=== PATIENT | male | born 1960 | race Caucasian/White ===

== ENCOUNTER 2024-11-15 13:11 | Emergency (ER) | payer MEDICARE, SELFPAY ==
--- NOTE | 2024-11-15 13:15 | ED_ITS ---
HPI - Wound/Laceration General Chief Complaint: Wound/Laceration Stated Complaint: RT Hand 1st Finger Time Seen by Provider: 11/15/24 13:12 Source: patient Mode of arrival: ambulatory Limitations: no limitations History of Present Illness HPI narrative: Chris is a 64-year-old male patient presenting to the clinic today with complaints right index finger injury/laceration. He reports he was trying to put a razor blade back and it is case using a piece of wood when the wood slipped and he cut his finger. Has a 1.5 cm laceration to the distal right index finger. This happened prior to arrival. Bleeding is controlled. Tetanus was last received in 2016. Is able to flex and extend the distal finger. Patient takes Eliquis Related Data Allergies Allergy/AdvReac Type Severity Reaction Status Date / Time lisinopril Allergy Intermediate Cough Verified 11/15/24 14:00 cat dander Allergy Mild Sneezing Verified 11/15/24 14:00 cortes ebony Allergy Intermediate Sneezing Uncoded 11/15/24 14:00 Review of Systems Review of Systems: Pertinent positives per HPI. Patient denies any fever, chills, rash, headache, visual changes, dizziness, cough, runny nose, sore throat, shortness of breath, chest pain, palpitations, nausea, vomiting, diarrhea, constipation, abdominal pain, or any urinary issues. PMFSH Comments At the time of my signature, I reviewed and agree with the nursing past medical, surgical, social, and family history. There is no relevant family history pertinent to the patient complaint. Exam Narrative: General: Well-developed, well nourished, in no apparent distress Head: Normocephalic, atraumatic. Cardio: Regular rate and rhythm, s1 and s2 normal, no murmur appreciated. Resp: Clear to auscultation bilaterally, no rhonchi, rales, wheezing or rubs. Integumentary: [place], warm, and dry, 1.5 cm laceration over the dorsal PIP joint of the right index finger. Patient is able to flex and extend the finger. No obvious tendon as the laceration appears to be superficial. Bleeding controlled Course Course Emergency Course: Portions of this record may have been created with voice recognition software. Level of Care: Express Care Visit Vital Signs Vital signs: Vital Signs Temperature 36.4 C 11/15/24 13:21 Pulse Rate 59 L 11/15/24 13:21 Respiratory Rate 16 11/15/24 13:21 Blood Pressure 141/87 H 11/15/24 13:21 Pulse Oximetry 98 11/15/24 13:21 Oxygen Delivery Room Air 11/15/24 13:21 Temperature 36.4 C 11/15/24 13:21 Pulse Rate 59 L 11/15/24 13:21 Respiratory Rate 16 11/15/24 13:21 Blood Pressure 141/87 H 11/15/24 13:21 Pulse Oximetry 98 11/15/24 13:21 Oxygen Delivery Room Air 11/15/24 13:21 Vital signs reviewed Procedures Laceration Laceration 1: Date: 11/15/24 Site: hand (index finger) Side (If applicable): right Size (cm): 1.5 Description: linear Depth: simple, single layer Local Anesthetic: lidocaine 1% Amount of anesthesia used (mL): 0.5 Pre-repair: wound explored and irrigated ====== Skin Level ====== Skin layer closed with: nylon Size (cm): 5-0 Number of sutures: 5 Technique: simple, interrupted ====== Subcutaneous Layer ====== ====== Muscle Layer ====== ====== Tendon Layer ====== Dressing: Verbal consent obtained for laceration repair. Risk and benefits explained and patient voiced understanding. Area was cleansed with antiseptic wound wash and a 27 gauge needle was then used to instill (0.5) ml of 1% lidocaine without epi into the wound edges. Area was prepped and draped using sterile technique. A 5-0 suture on a p needle was used to place (5) interrupted sutures bringing the wound edges together- well approximated. Patient tolerated procedure well. Sterile pressure dressing and metal finger splint applied. MDM - Wound/Laceration MDM Narrative Medical decision making narrative: At the time of visit patient is resting comfortably on the exam table. Patient appears to be nontoxic. Procedures: Laceration repair was performed in the clinic today. Patient tolerated well. Five interrupted sutures were placed bringing wound edges well approximate. Plan: Patient has distal superficial finger laceration over the D IP, he is able to flex and extend the D IP joint. Bleeding is controlled. Laceration repair was performed placing 5 sutures. Supportive measures were discussed with the patient and they voiced understanding discharge instructions and agrees to treatment plan. Return precautions reviewed Differential Diagnosis Differential diagnosis: Likely laceration, abscess, abrasion, avulsion of skin and other (Tendon injury) Discharge Plan Discharge Clinical Impression: Finger laceration Qualifiers: Encounter type: initial encounter Finger: index finger Damage to nail status: without damage Foreign body presence: without foreign body Laterality: right Qualified Code(s): S61.210A - Laceration without foreign body of right index finger without damage to nail, initial encounter Patient Disposition: Home Condition: Stable Instructions: Antibiotic Form, Finger Laceration (ED) Additional Instructions: Tdap was given in the clinic today Leave bandage on for 24 hours then may remove and apply band aide covering as needed. Keep wound clean and dry Skin sutures out in 10 days. Wear metal finger splint to avoid ripping out the stitches Watch for signs and symptoms of infection-fever not controlled by Tylenol Motrin, redness, streaking, swelling, purulent discharge, or increase in pain. Follow up with your PCP for suture removal or return to the Express care. Patient Language: Occitan Follow-up/Referrals: Parent,CAN Arriaga [Primary Care Provider] - Time of Disposition: 13:56 Quality NIHSS Nursing Documentation ED NIHSS nursing documentation: reviewed/agree
[2024-11-15 13:21] VITALS: BP 141/87; PULSE 59; RESP 16; TEMP 36.4; O2SAT 98
[2024-11-15] MEDS: TETANUS,DIPHTHERIA,AC PERTUSSIS ADULT (0.5 ML) BOOSTRIX IM (13:34)
[2024-11-15] MEDS: LIDOCAINE 1% LOCAL INJ 2 ML AMPUL 4 ML INFILTRATE (13:34)
--- OUTSIDE RECORDS SUMMARY | 2024-11-15 13:43 | XMS_ITS | Clinical Summary ---
Author Organization [facility] Address [address] [place] [address] Care Team Providers Care Theology Professor Name Role Phone Leonard Connors MD Unavailable [phone] Steven Plunkett MD Unavailable [phone] [facility] Primary Care Provider [phone] Allergies Active Allergy Reactions Criticality Noted Date Comments Amiodarone Vision changes Medium 07/21/2018 Cat Dander Rhinitis Low 12/14/2022 Lisinopril Hives High 11/16/2019 Ragweed Rhinitis Low 06/16/2020 Medications omeprazole (PriLOSEC) 40 mg capsule take 1 capsule by oral route every day before a meal 0 0 6 Active aspirin 81 mg enteric coated tablet Take 1 tablet (81 mg total) by mouth every morning Active acetaminophen (TYLENOL) 325 mg tablet 2 po at hs , one in AM 250 tablet 1 1 Active magnesium oxide (MAG-OX) 400 mg (241.3 mg elemental magnesium) tablet TAKE 1 TABLET(400 MG) BY MOUTH DAILY 30 tablet 11 2 Active clobetasoL (TEMOVATE) 0.05 % ointment 3 Active psyllium husk (KONSYL) 6 gram packet Take 1 packet (6 g total) by mouth 3 (three) times a day for 14 days 42 packet 3 Active triamcinolone (KENALOG) 0.5 % cream APPLY A THIN LAYER TO THE AFFECTED AREA(S) BY TOPICAL ROUTE 2 TIMES PER DAY up to 2 weeks at a time Active hydrocortisone 2.5 % cream 3 Active Pramosone cream Apply 1 Application topically as needed for itching 3 Active Rhopressa 0.02 % drops INSTILL 1 DROP INTO EACH EYE AT NIGHT AT BEDTIME Active diclofenac sodium (Voltaren Arthritis Pain) 1 % gel APPLY 2 GRAMS TO THE AFFECTED AREA(S) BY TOPICAL ROUTE 4 TIMES PER DAY 4 Active dorzolamide (TRUSOPT) 2 % ophthalmic solutionIndica tions:Angle-cl osure glaucoma, severe stage INSTILL 1 DROPS INTO EACH EYE TWICE DAILY 30 mL 3 4 Active losartan (COZAAR) 50 mg tablet Take 1 tablet (50 mg total) by mouth 2 (two) times a day 180 tablet 3 4 03/20/20 25 Active potassium chloride ER 20 mEq CR tablet TAKE 2 TABLETS BY MOUTH TWICE DAILY 360 tablet 2 5 Active metoprolol XL (TOPROL-XL) 25 mg extended release tablet Take 1 tablet (25 mg total) by mouth daily 90 tablet 1 5 Active apixaban (Eliquis) 5 mg tablet Take 1 tablet (5 mg total) by mouth 2 (two) times a day 180 tablet 3 5 07/20/19 26 Active sotaloL (BETAPACE) 120 mg tablet TAKE 1 AND 1/2 TABLETS(180 MG) BY MOUTH TWICE DAILY 270 tablet 5 Active brimonidine (ALPHAGAN) 0.15 % ophthalmic solution INSTILL 1 DROP INTO EACH EYE THREE TIMES DAILY 45 mL 5 Active mexiletine (MEXITIL) 150 mg capsule Take 1 capsule (150 mg total) by mouth 3 (three) times a day 270 capsule 5 Active amLODIPine (NORVASC) 5 mg tablet Take 1 tablet (5 mg total) by mouth daily 90 tablet 3 5 Active amLODIPine (NORVASC) 5 mg tablet TAKE 1 TABLET(5 MG) BY MOUTH DAILY 90 tablet 3 4 10/27/19 25 Discontin ued(Reord er) Active Problems Problem Noted Date Diagnosed Date ICD (implantable cardioverter-defibrillator) in place 09/19/2024 High risk medication use 09/19/2024 Left carpal tunnel syndrome 03/12/2024 Right carpal tunnel syndrome 03/12/2024 Left wrist pain 03/12/2024 Other specified arthritis, right wrist Scapholunate advanced collapse of right wrist CYNTHIA on CPAP 03/09/2023 Legal blindness 10/12/2022 Assessment & Plan (10/12/2022 10:13 AM CDT): Based on VF Pseudophakia of both eyes 10/12/2022 Assessment & Plan (02/24/2023 4:11 PM CDT): Release updated glasses Rx Circadian rhythm sleep disorder, delayed sleep p hase type 03/01/2022 Morbid (severe) obesity due to excess calories 0 03/01/2022 Squamous blepharitis of both upper and lower eyelid of left eye 01/05/2022 Assessment & Plan (06/16/2023 3:28 PM ROLL TRUCKER): Rx doxy 100 mg BID Pt reports this helped significantly in the past Rec refresh/systane tears prn Assessment & Plan (01/05/2022 3:02 PM CDT): Pt ed, no foreign body (FB), mod-sev bleph left eye (OS), mild right eye (OD). Pt ed to cont Glc drops as Rx'd per Dr. Cooper. Trichiasis of left upper eyelid 01/05/2022 Lesion of left lower eyelid 12/14/2021 Assessment & Plan (12/14/2021 1:08 AM CDT): Suspect benign seborrheic keratosis vs multiple syringoma. Risks, benefits and alternatives were discussed. Risks included but were not limited to pain, bleeding, scarring, recurrence, and possible need for additional procedures. Following this discussion, the patient wishes to proceed with left lower lid (LLL) lesion excision and biopsy. This was performed today without any complications. They will follow-up as needed. We will contact him with the biopsy results. Restless sleeper 06/16/2020 Chronic arthritis 06/16/2020 Chewing tobacco use 03/23/2020 Assessment & Plan (03/25/2020 9:52 AM CDT): Pt reports he chews tobacco, denies smoking cigarettes -Cont Nicotine patch Assessment & Plan (03/24/2020 9:21 AM CDT): Pt reports he chews tobacco, denies smoking cigarettes -Cont Nicotine patch VT (ventricular tachycardia) 03/20/2020 Assessment & Plan (07/17/2020 11:24 AM ROLL TRUCKER): S/p VT ablation. Tolerated well. No VT overnight on telemetry. Cleared for discharge by EP. - Held home Eliquis immediately post-procedure, resume today - Continue home Sotalol, Mexiletine - EP Cardiology follow-up Assessment & Plan (07/16/2020 5:29 PM ROLL TRUCKER): S/p VT ablation. - Monitor overnight - Check CBC and watch for e/o bleeding - Hold home Eliquis tonight; can likely resume tomorrow on discharge - Continue home Sotalol, Mexiletine - EP Cardiology following Assessment & Plan (03/26/2020 11:19 AM CDT): History of VT RFA 11/29/2018 and VT storm s/p RFA 10/2019 Home meds sotalol 120mg BID and metoprolol 12.5mg BID Developed visual disturbances/blindness with amiodarone in the past Presented to OSH 03/18 with appropriate ICD shocks for VT Most recent C 11/2018 with no significant CAD ECHO 03/20 with Grossly normal LV/RV size and systolic function (estimated LVEF 60%). Diastolic dysfunction Sotalol increased to 160mg BID this admission Had recurrent VT Thursday 03/22 Increased to 180mg 03/24 Started on Lidocaine gtt 1mg/min 03/22 PM due to recurrent VT with AICD shock Transitioned to Mexiletine 03/24, lidocaine off since 03/24 MPI to re-assess scar - no significant new findings Serial EKGs 2 hours after each Sotalol remain stable Will monitor until this afternoon- if no recurrent ventricular arrhythmias, discharge later today Continuous uninterrupted telemetry monitoring until discharge Keep K >4.0 & Mg > 2.0, replete as indicated Assessment & Plan (03/25/2020 9:59 AM CDT): Admitted with multiple AICD shocks for VT; interrogation with 5 episodes; 2 shocks, 2 successful ATP; noted K 3.5 and Mg 1.8 at time -History of VT RFA 11/29/2018 and VT storm s/p RFA 10/2019 -Developed visual disturbances/blindness with Amiodarone in the past -Most recent [facility] 11/2018 with no significant CAD -ECHO 03/20 with grossly normal LV/RV size and systolic function (estimated LVEF 60%), diastolic dysfunction -Sotalol increased to 160mg BID this admission, increased to 180mg 03/24 -Started on Lidocaine gtt 1mg/min 1010 PM due to recurrent VT with AICD shock -Start Mexiletine 03/24, lidocaine off 03/24 afternoon -MPI today to re-assess scar -Serial EKGs 2 hours after each Sotalol dose; QTc today 430, paced rhythm -Continuous uninterrupted telemetry monitoring -Keep K >4.0 & Mg > 2.0, replete as indicated Assessment & Plan (03/24/2020 1:38 PM CDT): Admitted with multiple AICD shocks for VT; interrogation with 5 episodes; 2 shocks, 2 successful ATP; noted K 3.5 and Mg 1.8 at time -History of VT RFA 11/29/2018 and VT storm s/p RFA 10/2019 -Developed visual disturbances/blindness with Amiodarone in the past -Most recent [facility] 11/2018 with no significant CAD -ECHO 03/20 with grossly normal LV/RV size and systolic function (estimated LVEF 60%), diastolic dysfunction -Sotalol increased to 160mg BID this admission, will increase to 180mg BID today -Started on Lidocaine gtt 1mg/min 1010 PM due to recurrent VT with AICD shock -Start Mexiletine this morning, DC lidocaine gtt this afternoon -No plans for repeat ablation at this time -Serial EKGs 2 hours after each Sotalol dose; QTc today 430, paced rhythm -Continuous uninterrupted telemetry monitoring -Keep K >4.0 & Mg > 2.0, replete as indicated Assessment & Plan (03/23/2020 10:32 AM CDT): Admitted with multiple AICD shocks for VT; interrogation with 5 episodes; 2 shocks, 2 successful ATP; noted K 3.5 and Mg 1.8 at time -History of VT RFA 11/29/2018 and VT storm s/p RFA 10/2019 -Developed visual disturbances/blindness with Amiodarone in the past -Sotalol increased this admission -Started on Lidocaine gtt 1mg/min last night due to recurrent VT, continue, Lidocaine level 1.2 today -EKG today A paced with QTc 445ms -Continue Sotalol to 160mg BID -Serial EKGs 2 hours after each Sotalol dose -Continuous uninterrupted telemetry monitoring -Most recent [facility] 11/2018 with no significant CAD -ECHO 03/20 with grossly normal LV/RV size and systolic function (estimated LVEF 60%), diastolic dysfunction -No plans for repeat ablation -Monitor lytes Assessment & Plan (03/22/2020 12:44 PM CDT): Admitted with multiple AICD shocks for VT; interrogation with 5 episodes; 2 shocks, 2 successful ATP; noted K 3.5 and Mg 1.8 at time -History of VT RFA 11/29/2018 and VT storm s/p RFA 10/2019 -Developed visual disturbances/blindness with amiodarone in the past -Increased sotalol to 160mg BID; serial EKGs and continuous telemetry; EKG today paced with QTc 464 -Most recent [facility] 11/2018 with no significant CAD -ECHO 03/20 with Grossly normal LV/RV size and systolic function (estimated LVEF 60%), Diastolic dysfunction -No plans for repeat ablation -Monitor lytes Assessment & Plan (03/21/2020 9:58 AM CDT): History of VT RFA 11/29/2018 and VT storm s/p RFA 10/2019 Home meds sotalol 120mg BID and metoprolol 12.5mg BID Developed visual disturbances/blindness with amiodarone in the past Presented to OSH 03/18 with appropriate ICD shocks for VT 21:17 VT events initially terminated with ATP, then recurrent (21:23) with ATP fail, terminated with shock x 1 Followed by possible AFRVR (21:24) with PVCs ATPx2 with no clear resolution Recurrent VT (21:29) event terminated with shock x 1 VT 21:33 - 10-beat NSVT event terminated without therapies Noted to be Hypokalemic with K 3.5 and hypomagnesemic 1.8 Lytes repleted with no recurrence Keep K > 4, Mg > 2 Increased sotalol to 160mg BID Follow ECG BID Will monitor over weekend- if no recurrence likely discharge Tuesday Most recent [facility] 11/2018 with no significant CAD ECHO 03/20 with Grossly normal LV/RV size and systolic function (estimated LVEF 60%). Diastolic dysfunction Monitor on continuous telemetry No plans for repeat ablation Assessment & Plan (03/20/2020 11:01 AM CDT): History of VT RFA 11/29/2018 and VT storm s/p RFA 10/2019 Currently on sotalol and metoprolol Developed visual disturbances/blindness with amiodarone in the past Presented to OSH 03/18 with appropriate ICD shocks for VT 21:17 VT events initially terminated with ATP, then recurrent (21:23) with ATP fail, terminated with shock x 1 Followed by possible AFRVR (21:24) with PVCs ATPx2 with no clear resolution Recurrent VT (21:29) event terminated with shock x 1 VT 21:33 - 10-beat NSVT event terminated without therapies Noted to be Hypokalemic with K 3.5 and hypomagnesemic 1.8 Lytes repleted with no recurrence Keep K > 4, Mg > 2 Continue sotalol and metoprolol for now Most recent [facility] 11/2018 with no significant CAD Echo 10/2019 with low normal LV function- repeat echo today Monitor on continuous telemetry Daily ECG History of mitral valve repair 03/20/2020 Assessment & Plan (03/23/2020 10:25 AM CDT): Severe mitral regurgitation with flail leaflet status post mitral valve repair plus MAZE by Dr. Veliz 02/26/2016 Assessment & Plan (03/22/2020 9:06 AM CDT): Severe mitral regurgitation with flail leaflet status post mitral valve repair plus MAZE by Dr. Veliz 02/26/2016 Assessment & Plan (03/20/2020 10:55 AM CDT): Severe mitral regurgitation with flail leaflet status post mitral valve repair plus MAZE by Dr. Veliz 02/26/2016 Dizziness 02/13/2020 Tinnitus 02/13/2020 Asymmetric SNHL (sensorineural hearing loss) 07/2019 Aortic root dilatation 01/17/2019 Ventricular tachycardia 11/21/2018 Assessment & Plan (11/01/2019 1:56 AM CDT): Patient with recurrent VT episodes and multiple ICD shocks starting late 10/29 at home. Brought to [facility] ED and given IV K/Mg and started on Lidocaine infusion, transferred to [facility] CCU. - [employer] rep called; device interrogated - EP consult placed - appreciate recs - Anticipate repeat ablation for Tuesday - Continue Lidocaine gtt - Starting Metoprolol 25mg q6h - TTE ordered. Assessment & Plan (12/01/2018 8:56 AM CDT): Patient with history of multiple supraventricular tachycardias including afib/aflutter with recent admission 11/20 for Tikosyn load, now presenting with HR 202 at home and possible wide complex physiology. As no true EKG, unclear if SVT with aberancy vs Ventricular origin. Suspect SVT over ventricular origin as patient had normal LHC last week. -Follows with Dr. Plunkett -Telemetry w/o VT (shows bigeminy) -Continue Tikosyn -Monitor electrolytes - S/P VT Ablation 11/29, now S/P ICD placement 11/30 Assessment & Plan (11/23/2018 8:56 AM CDT): History of surgical MAZE/MV in 2016 and ablation Rhythm strip from OSH showing VT vs: tachyarrhythmia with aberrant conduction - continue dofetilide 125mcg bid with 12 lead EKG after each dose Positive stress test : plan for LHC on Tuesday ( currently can not do today related to patient on apixaban) - strict telemetry -hold apixaban for cardiac catheterization - continue coreg 3.125 mg bid Assessment & Plan (11/22/2018 8:13 AM CDT): History of surgical MAZE/MV in 2016 and ablation Rhythm strip from OSH showing VT vs: tachyarrhythmia with aberrant conduction - continue dofetilide 125mcg bid with 12 lead EKG to follow ATc - NPO for nuclear stress test tomorrow to evaluate for ischemia - strict telemetry - continue apixaban - continue coreg Assessment & Plan (11/21/2018 9:42 AM CDT): History of surgical MAZE/MV in 2016 and ablation Rhythm strip from OSH showing VT vs: tachyarrhythmia with aberrant conduction - continue dofetilide 125mcg bid with 12 lead EKG to follow ATc - NPO after midnight for nuclear stress test tomorrow to evaluate for ischemia - strict telemetry - continue apixaban - continue coreg Bilateral posterior capsular opacification 10/27 Assessment & Plan (01/23/2019 4:19 PM CDT): POW#1 sp yag cap left eye (OS) -great outcome; vision improved subjectively and on eye chart -stop ketorolac Status post (s/p) yag cap right eye (OD) 12/2018 Assessment & Plan (12/29/2018 2:22 PM CDT): POW#1 status post (s/p) yag cap right eye (OD) -great outcome -stop ketorolac -pt now more symptomatic of PCO left eye (OS) Schedule left eye (OS) with RW next available Assessment & Plan (10/27/2018 3:18 PM CDT): right eye (OD)>OS -visually significant; pt symptomatic for blur and decreased vision -also assessed by RW today -RTC for yag cap; right eye (OD) first already assessed by RW Blepharitis of upper eyelids of both eyes 2017 Assessment & Plan (12/20/2023 11:46 AM CDT): Optase wipes daily PFATs QID+ Assessment & Plan (03/10/2018 4:30 PM CDT): Cont ocusoft lid wipes and daily lid hygiene; defer topical steroid due to advanced glaucoma -okay to cont to Doxy 100mg every day (QD) as needed; consider 50mg instead but tolerates 100mg well and feels helpful for symptoms Assessment & Plan (02/26/2018 8:31 PM CDT): Follows with optho. -daily lid hygiene and warm compresses Assessment & Plan (01/25/2018 11:57 AM CDT): Chronic; previously treated with oral doxy; start Ocusoft lid wipes daily X 2-3 weeks; start daily lid hygiene and warm compresses. Idiopathic peripheral neuropathy 06/09/2017 Abdominal aortic aneurysm (AAA) 06/01/2017 Conjunctival hemorrhage 03/14/2017 Assessment & Plan (01/02/2024 4:59 PM CDT): S/sx resolved stopping Rhopress, cont off this Hypertropia of right eye 03/14/2017 Assessment & Plan (07/05/2023 10:47 AM ROLL TRUCKER): Update Rx Assessment & Plan (07/18/2018 3:17 PM ROLL TRUCKER): Noted on original exam with Dr Gabriel prior CE; tried fresnel with no improvement -may be decompensated after cataract extraction (CE) as became symptomatic after sx -does well with 2BD right eye (OD); cont with hb rx Assessment & Plan (03/10/2018 4:29 PM CDT): Stable with prism in RX; follow Assessment & Plan (12/09/2017 4:25 PM CDT): Stable with prism in rx; no diplopia; follow Adult BMI 36.0-36.9 kg/sq m 03/02/2017 Assessment & Plan (03/20/2020 10:53 AM CDT): Weight stable Knee pain 11/19/2016 Angle-closure glaucoma, secondary, bilateral, se marcial stage 06/30/2016 Assessment & Plan (10/26/2024 3:36 PM CDT): IOPs low/at goal CPM Assessment & Plan (02/24/2024 12:55 PM CDT): IOPs excellent, at goal both eyes (OU) Cont on 4 classes both eyes (OU) Rocklatan qhs Dorz BID Brim BID Assessment & Plan (01/02/2024 4:59 PM CDT): CPM Assessment & Plan (11/28/2023 3:56 PM CDT): Continue current drop regimen, but add Rhopressa at bedtime (qhs) OU Assessment & Plan (07/05/2023 10:48 AM ROLL TRUCKER): CPM Assessment & Plan (06/16/2023 3:29 PM ROLL TRUCKER): IOPs low, adequate for visual field (VF) (stable compared to 09/2022) Cont brim TID and Trusopt BID OU Assessment & Plan (02/24/2023 4:11 PM CDT): Last visual field (VF), 10-2 stable, CPM Assessment & Plan (10/12/2022 10:15 AM CDT): Cagle visual field (HVF) 10-2 stable Severe disease, h/o angle closure glaucoma (ACG) Cont Brim TID + Dorzolamide BID OU Assessment & Plan (01/05/2022 3:03 PM CDT): cont brim TID both eyes (OU) and Dorz BID both eyes (OU) Assessment & Plan (11/04/2019 10:25 AM CDT): -Cont home eye drops Assessment & Plan (11/02/2019 3:34 PM CDT): -Cont home eye drops Assessment & Plan (10/31/2019 4:42 PM CDT): Continue home eye drop regimen as precribed Assessment & Plan (01/23/2019 4:20 PM CDT): intraocular pressure (IOP) at goal on 2 classes -Cagle visual field (HVF) 10-2 constricted right eye (OD)>OS but stable to previous -CPM -RTC 3 months intraocular pressure (IOP) Assessment & Plan (11/27/2018 5:35 AM CDT): -Severely decreased R visual acuity -Continue home eye drops Assessment & Plan (07/18/2018 3:13 PM ROLL TRUCKER): intraocular pressure (IOP) at goal on 2 classes -status post (s/p) phaco/IOL I-stent with Dr Vincent -OCT RNFL thin both eyes (OU) but stable to 06/2016 -cont brim TID both eyes (OU) and Dorz BID both eyes (OU) -RTC 6 months Cagle visual field (HVF) 10-2 Assessment & Plan (03/10/2018 4:29 PM CDT): Status post (s/p) phaco/IOL and istent both eyes (OU) -intraocular pressure (IOP) at goal today on 2 classes -Cagle visual field (HVF) 10-2 today improved from last; stable to 06/2016 -Cont brim TID and dorz BID both eyes (OU) -RTC 5-6 months intraocular pressure (IOP) and DFE Assessment & Plan (02/26/2018 8:35 PM CDT): Last optho note from 01/25 reported IOP at goal -c/w Brimonidine TID -c/w Azopt BID Assessment & Plan (01/25/2018 11:58 AM CDT): Status post (s/p) phaco/ecp/istent both eyes (OU); deep and quiet today. intraocular pressure (IOP) at goal on Brimonidine TID and Azopt BID both eyes (OU); CPM; RTC as scheduled 02/2018 with 10-2 Assessment & Plan (12/09/2017 4:27 PM CDT): Severe stage both eyes (OU); right eye (OD)>OS Cagle visual field (HVF) 10-2 shows progression both eyes (OU). May be residual change form prior angle closure/pressure spike. intraocular pressure (IOP) at goal today on 2 classes but not using correctly; pt ed Brim TID both eyes (OU) and Dorz BID both eyes (OU). Recommend artificial tears 5 minutes prior to dorz to reduce burning. RTC 3 months with repeat 10-2 to assess for true progression Disorder of optic nerve 06/16/2016 Retinal embolus 05/17/2016 Gastroesophageal reflux disease 05/17/2016 Assessment & Plan (11/04/2019 10:25 AM CDT): -cont PPI Assessment & Plan (11/02/2019 3:34 PM CDT): -cont PPI Assessment & Plan (10/31/2019 4:42 PM CDT): Continue home pantoprazole Obstructive sleep apnea syndrome, severe 016 Assessment & Plan (03/07/2024 11:56 AM CDT): Compliance data reviewed and discussed CYNTHIA - good compliance and response to therapy. Benefiting from therapy. Continue PAP therapy. Compliance data reviewed and discussed. Equipment maintenance discussed. RTC in one year or as needed. New Order for yearly supplies entered. Provider Plus Assessment & Plan (07/17/2020 11:24 AM ROLL TRUCKER): - CPAP Assessment & Plan (07/16/2020 5:29 PM ROLL TRUCKER): - CPAP Assessment & Plan (03/25/2020 9:54 AM CDT): Continue home CPAP Assessment & Plan (03/24/2020 9:20 AM CDT): Continue home CPAP Assessment & Plan (03/23/2020 10:25 AM CDT): Continue home CPAP Assessment & Plan (03/22/2020 9:06 AM CDT): Continue home CPAP Assessment & Plan (03/21/2020 9:59 AM CDT): Continue home CPAP Assessment & Plan (03/20/2020 10:54 AM CDT): Continue home CPAP Assessment & Plan (11/03/2019 11:57 AM CDT): -Cont CPAP Assessment & Plan (11/02/2019 3:35 PM CDT): -Cont CPAP Assessment & Plan (10/31/2019 4:41 PM CDT): CPAP at night Assessment & Plan (11/27/2018 5:34 AM CDT): -Continue CPAP 14mmHg Assessment & Plan (11/23/2018 8:58 AM CDT): - continue home CPAP nightly Assessment & Plan (11/22/2018 8:12 AM CDT): - continue home CPAP nightly Assessment & Plan (11/21/2018 9:38 AM CDT): - continue home CPAP nightly Coronary arteriosclerosis in [place] artery 01/13 Essential hypertension 05/06/2015 Assessment & Plan (07/17/2020 11:25 AM ROLL TRUCKER): - Continue home Norvasc, Losartan, Metoprolol, Sotalol Assessment & Plan (07/16/2020 5:30 PM ROLL TRUCKER): - Continue home Norvasc, Losartan, Metoprolol, Sotalol Assessment & Plan (03/26/2020 11:21 AM CDT): Blood pressure controlled -Continue home Amlodipine, Losartan, and Metoprolol Assessment & Plan (03/25/2020 9:52 AM CDT): Blood pressure controlled -Continue home Amlodipine, Losartan, and Metoprolol Assessment & Plan (03/24/2020 9:20 AM CDT): Blood pressure controlled -Continue home Amlodipine, Losartan, and Metoprolol Assessment & Plan (03/23/2020 10:25 AM CDT): Blood pressure controlled -Continue home Smlodipine, Losartan, and Metoprolol Assessment & Plan (03/22/2020 9:06 AM CDT): Blood pressure controlled -Continue home amlodipine, losartan, and metoprolol Assessment & Plan (03/21/2020 9:59 AM CDT): Blood pressure controlled Continue home amlodipine, losartan, and metoprolol Follow Assessment & Plan (03/20/2020 11:04 AM CDT): Blood pressure controlled Continue home amlodipine, losartan, and metoprolol Follow Assessment & Plan (11/04/2019 10:25 AM CDT): At goal -cont amlodipine, metoprolol (prior coreg), losartan Assessment & Plan (11/02/2019 3:34 PM CDT): -cont amlodipine, metoprolol (prior coreg), losartan Assessment & Plan (10/31/2019 4:41 PM CDT): Stopped home Coreg in favor of Metoprolol for q6h titration. - Continue prior home regimen of amlodipine and losartan. Assessment & Plan (11/27/2018 5:34 AM CDT): -Continue Coreg, Lisinopril Assessment & Plan (11/23/2018 9:03 AM CDT): reviewed blood pressures 124/93,130/90 ( might consider increasing carvedilol to 6. 25 mg bid ) - continue coreg 3.125 mg bid and lisinopril 20 mg daily Assessment & Plan (11/22/2018 8:12 AM CDT): Currently at goal - continue coreg, lisinopril and monitoring Assessment & Plan (11/21/2018 9:43 AM CDT): Currently at goal - continue coreg, lisinopril and monitoring Assessment & Plan (07/25/2018 10:39 AM ROLL TRUCKER): - currently with systolics in the 80s, asymptomatic - plan to restart his beta shelly tonight per cards recs - still holding lisinopril and spironolactone, will defer restarting until patient can be reevaluated with PCP or cardiology Assessment & Plan (07/24/2018 6:41 PM ROLL TRUCKER): - currently normotensive - plan to restart his beta shelly tonight per cards recs, holding lisinopril and spironolactone. Assessment & Plan (02/26/2018 8:36 PM CDT): Well controlled on current medications. -c/w lisinopril Aneurysm of thoracic aorta 05/06/2015 Atrial fibrillation and flutter 05/06/2015 Assessment & Plan (03/26/2020 11:21 AM CDT): S/P MAZE 2016 with recurrent atrial arrhythmias. AF/AFL RFA 07/24/18 Anticoagulated with Eliquis Assessment & Plan (03/25/2020 9:51 AM CDT): S/P MV repair and MAZE 2015 with recurrent atrial arrhythmias -AF/AFL RFA 07/24/18 -Home Eliquis held on admission for possible invasive procedures -Continue Heparin gtt for anticoagulation, will plan to resume NOAC prior to discharge Assessment & Plan (03/24/2020 9:21 AM CDT): S/P MV repair and MAZE 2016 with recurrent atrial arrhythmias -AF/AFL RFA 07/24/18 -Home Eliquis held on admission for possible invasive procedures -Continue Heparin gtt for anticoagulation, will plan to resume NOAC prior to discharge Assessment & Plan (03/23/2020 10:32 AM CDT): S/P MV repair and MAZE 2015 with recurrent atrial arrhythmias -AF/AFL RFA 07/24/18 -Home Eliquis held on admission for possible invasive procedures -Continue Heparin gtt for anticoagulation, will plan to resume NOAC prior to discharge Assessment & Plan (03/22/2020 9:07 AM CDT): S/P MV repair and MAZE 2015 with recurrent atrial arrhythmias -AF/AFL RFA 07/24/18 -Anticoagulated with Eliquis, held on admission for possible invasive procedures, cont hpn gtt Assessment & Plan (03/21/2020 9:58 AM CDT): S/P MAZE 2015 with recurrent atrial arrhythmias. AF/AFL RFA 07/24/18 Anticoagulated with Eliquis- held on admission for possible invasive procedures Heparin drip until Eliquis resumed Will resume tonight- patient not interested in repeat ablation at this time No need for other invasive testing Assessment & Plan (03/20/2020 11:03 AM CDT): S/P MAZE 2015 with recurrent atrial arrhythmias. AF/AFL RFA 07/24/18 Anticoagulated with Eliquis- held on admission for possible invasive procedures Heparin drip until Eliquis resumed Assessment & Plan (11/04/2019 10:25 AM CDT): A-V pacing on tele. - stopped dofetilide - now on sotalol load (first dose 11/01 PM); c/w sotalol 120 mg BID - EKG 2 hours post dose -c/w apixaban 5mg bid Assessment & Plan (11/02/2019 1:52 AM CDT): A-V pacing on tele. -Eliquis currently held prior to VT ablation -restart pending EP recs Assessment & Plan (11/01/2019 1:56 AM CDT): On Eliquis at home. Eliquis was HELD upon admission (last dose taken evening of 10/29 at home) Assessment & Plan (12/01/2018 8:53 AM CDT): Status post bilateral MAZE 02/2016 and radioablation 07/2018 -Currently in sinus rhythm -CHADS-VASC = 1 - Per EP, restarting Apixaban on 12/02. 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 - restart beta shelly - PPI x1 mo - telemetry Assessment & Plan (07/24/2018 6:42 PM ROLL TRUCKER): - s/p ablation today with EP: Plan to resume eliquis and dofetilide overnight, with plan to continue eliquis for at least 6-12 months, and dofetilide for the next 1-2 months. - restart beta shelly - PPI x1 mo - telemetry Assessment & Plan (03/02/2018 11:53 AM CDT): Pt was diagnosed with A-fib 3 yrs ago. Recent CV in March, with return to sinus rhythm. He was previously rhythm controlled, but developed severe vision problems while on amiodarone. Currently rate controlled with metop. Pt was wearing holter at admission and interrogation returned supraventricular tachycardia, 5 beats of V- tch, and 4 beats of V-tach. -s/p maze in 2015 -[id number] score of 2 points -continue metoprolol 25 BID -continue asprin -continue Apixaban 5 mg BID -EP c/s. Appreciate recs: Apixaban, dofetilide, TTE - dofetilide 500 mcg BID - BID EKG after dofetilide dosing - TTE: aortic root dilation to 4.1cm. Mild MR. nml EF. No new structural changes - CTM x6 doses dofetilide, last AM 03/02 -ctm on tele - Regular diet - discharge today Congenital anomaly of cerebrovascular system Overview (09/23/2017): Description: R. parietal, 12/2014 Resolved Problems Problem Noted Date Diagnosed Date Resolved Date Ventricular tachycardia 11/26/2018 01/0 09/2020 Overview (11/28/2018): Added automatically from request for surgery [id number] Assessment & Plan (11/04/2019 10:26 AM CDT): VT storm and transferred to [facility] (total 28 ICD shocks). Arhythmias controlled with normalization of electrolytes and lidocaine. Allergy/intolerant to amio. - s/p VT RFA on 11/01 - now on sotalol load (first dose 11/01 PM); c/w sotalol 120 mg BID - EKG 2 hours post dose -c/w apixaban 5mg bid Assessment & Plan (11/02/2019 3:36 PM CDT): VT storm and transferred to [facility] (total 28 ICD shocks). Arhythmias controlled with normalization of electrolytes and lidocaine. Allergy/intolerant to amio. - s/p VT RFA this AM -Lidocaine held at midnight last night prior to ablation -cont metoprolol (discuss EP possible propranolol) -Strict telemetry -K>=4, Mg>=2 Allergic conjunctivitis of right eye 01/25/2018 10/12/2022 Assessment & Plan (12/14/2021 1:09 AM CDT): Stable today, no intervention indicated -- possibly related to CPAP air leak. WIll continue follow up with Dr. Cooper. Assessment & Plan (07/18/2018 3:13 PM ROLL TRUCKER): Mild; cont alaway BID both eyes (OU) prn Assessment & Plan (01/25/2018 11:56 AM CDT): Vs less likely viral; pt ed supportive therapy. Start Alaway OTC BID right eye (OD) until symptoms resolved. RTC if no improvement Obstructive sleep apnea 05/25/201704/14 Assessment & Plan (03/02/2018 11:53 AM CDT): Last sleep study in 05/2017. Has home unit. 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 [address] [place] [address] Dorie Mathis, OD Angle-closure glaucoma, secondary, bilateral, severe stage (Primary Dx); Legal blindness 10/17/2024 11:00 AM CDT Imaging Exam [facility] [address] [place] [address] Angle-closure glaucoma, severe stage 10/02/2024 Telephone [facility] Ophthalmology [facility] [place] [address] Dorie Mathis, OD 09/21/2024 Orders Only [facility] Cardiology [address] [place] [address] Office [facility] [address] [place] [phone] Steven Plunkett MD 09/19/2024 2:45 PM CDT Office Visit [facility] Cardiology [address] [place] [address] Office [facility] [address] [phone] Kacie Castelan, CANDI Atrial fibrillation and flutter (HCC) (Primary Dx); VT (ventricular tachycardia) (HCC); ICD (implantable cardioverter-defibri llator) in place; High risk medication use 09/19/2024 2:15 PM CDT Ancillary Procedure [facility] Cardiology [address] [place] [address] Office [facility] [address] [place] [phone] VT (ventricular tachycardia) (HCC); Fitting or adjustment of automatic implantable cardioverter-defibri llator 09/19/2024 Results Follow-Up [facility] Cardiology [facility] Office Building [address] [place] [address] Kacie Castelan NP ECG 12 lead 08/27/2024 12:40 PM CDT Lab [facility] [address] [place] [address] High risk medication use; Fatigue, unspecified type; Essential hypertension 08/27/2024 12:00 PM CDT Office Visit [facility] Cardiology [address] [place] [address] Office Building [address] [place] [phone] Luz Alarcon NP High risk medication use (Primary Dx); Fatigue, unspecified type; Essential hypertension 08/27/2024 Results Follow-Up [facility] Cardiology [address] [place] [address] [address] [place] [phone] Luz Alarcon NP Thyroid Function [place], Lipid panel, CBC with auto differential, Additional followed-up results: 3 08/24/2024 Telephone [facility] Cardiology [address] [facility] 8th [place] [address] [place] [phone] Steven Plunkett MD from Last 3 Months Immunizations Immunization Administration Dates Next Due Influenza, Quadrivalent, Split, Intramuscular Influenza, Quadrivalent, Spl it, Preservative Free, Intramuscular 03/21/2020,02/28/2018 Influenza, Unspecified 03/02/2016 Tdap 07/15/2015,05/18/2006 Surgical History Surgery Date Site/Laterality Comments CATARACT EXTRACTION ecp istent CATARACT EXTRACTION W/ INTRAOCULAR LENS IMPLANT ecp istent CARDIOVERSION 03/13/2016 - 04/12/2016 SINUS SURGERY UMBILICAL HERNIA REPAIR GLAUCOMA SURGERY MITRAL VALVE REPAIR 02/12/2016 - 03/12/2016 Right mini-thoracotomy, mitral valve repair, triangular resection of posterior leaflet, ring annuloplasty, MAZE procedure CARDIAC CATHETERIZATION 11/24/2018 no CAD- in f/up to abnormal NM stress for large lateral wall area of moderate ischemia COLONOSCOPY UPPER GASTROINTESTINAL ENDOSCOPY CARDIAC PACEMAKER PLACEMENT CARDIAC DEFIBRILLATOR PLACEMENT 11/11/2018 - 12/10/2018 dual lead ICD, [employer] ABLATION OF AFIB FLUTTER 06/13/2018 - 06/12/2019 CARDIAC ELECTROPHYSIOLOGY STUDY AND ABLATION VT ablation 11/2018 and 10/2019 Medical History Medical History Date Comments Hypertension Hypertension Chronic coronary artery disease Coronary artery disease Glaucoma Bicuspid aortic valve GERD (gastroesophageal reflux disease) Atrial fibrillation and flutter (HCC) S/p ablation in 07/2018 Mitral regurgitation S/p MV repa ir with biatrial MAZE in 2015 Wide-complex tachycardia 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 Aortic aneurysm, thoracic 11/2018 Bicusp id aortic valve with aneurysmal dilation of the ascending aorta, measuring up to 5.2 cm at the sinuses of Valsalva- CT 05/03/19 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 CYNTHIA (obstructive sleep apnea) HL (hearing loss) Exposure to noise Tinnitus Covid-19 01/2021 recovered Family History Medical History Relation Name Comments Coronary artery disease Father Prostate cancer Father Heart disease Mother PONV Son Anesthesia problems Neg Hx Relation Name Status Comments Father Alive Mother Son Social History Tobacco Use Types Packs/Day Years Used Date Smoking Tobacco: Former Cigarettes 1988 Cigars Passive Smoke Exposure: Past Smokeless Tobacco: Former Chew Quit: 04/03/2020 Tobacco Cessation:Counseling Given: Not Answered Alcohol Use Standard Drinks/Week Comments Not Currently 0 (1 standard drink = 0.6 oz pur e alcohol) Personal Safety Answer Date Recorded Have you ever been in or are you currently in a harmful physical or emotional relationship or is someone making you feel afraid or unsafe? 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 Gender Identity Male 03/20/2021 9:13 AM CDT Sexual Orientation Straight 03/20/2021 9: 13 AM CDT Occupation Industry Job Start Date Job End Date retired Not on file Not on file Not on file Obstetrics History Last Filed Vital Signs Vital Sign Reading Time Taken Comments Blood Pressure 120/72 09/19/2024 2:26 PM CDT Pulse 64 09/19/2024 2:26 PM CDT Temperature 36.5 C (97.7 F) 03/07/2024 11:26 AM CDT Respiratory Rate 18 03/07/2024 11:26 AM CDT Oxygen Saturation 94% 09/19/2024 2:26 PM CDT Inhaled Oxygen Concentration - - Weight 112 kg (247 lb) 09/19/2024 2:26 PM CDT Height 177.8 cm (5' 10) 09/19/2024 2:26 PM CDT Body Mass Index 35.44 09/19/2024 2:26 PM CDT Plan of Treatment Health Maintenance Due Date Last Done Comments Colon Cancer Screening-Colonoscopy 1960 Depression Screening 1960 Hepatitis C Screening 1958 Prostate Cancer Screening-PSA 1958 Hepatitis B Screening 1976 Pneumococcal vaccine 65+ (1 of 1 - PCV) 2008 Zoster Vaccine (1 of 2) 2008 Fall Risk Assessment 07/16/2021 07/16/2020 Abdominal Aortic Aneurysm (A AA) Screen 2023 04/03/2020, 06/01/2017, 06/09/2016, Additional history exists Well Visit 65+ 2023 Covid-19 Vaccine (5 - 2023-2 5 season) 2024 06/03/2021, 05/23/2021, 10/02/2020, Additional history exists Influenza Vaccine (Season Ended) 2025 05/10/2022, 05/19/2021, 03/21/2020, Additional history exists DTaP/Tdap/Td Vaccine (3 - Td or Tdap) 07/15/2025 07/15/2015, 05/18/2006 Medical Devices Implanted Type Area Condemnation Engineer Device Identifier Shelf Expiration Date Model / Serial / Lot Daig Antione/[employer] [id number] Angio-Seal Evolution 6fr .035in Guidewire Bypass Tube Suture - [id number] Implanted:Qty: 1 on 11/24/2018 by Jose E Mclain MD at [facility] Collagen Daig [employer] 08/11/2019 [id number] / / [id number] [employer] Antione D152 Dynagen Enduralife Easyview Hf Perspectiv 5.37x7.68cm 2 Chamber - [id number] - [id number] Implanted:Qty: 1 on 11/30/2018 by Lori Veliz MD at [facility] ICD Left: Chest [employer] Antione 09/25/2020 D152 / [id number] / [employer] Antione 4470 Fineline Ii Sterox Ez 1.7mm 52cm Bipolar Active Fixation Screw - [id number] - [id number] Implanted:Qty: 1 on 11/30/2018 by Lori Veliz MD at [facility] Lead Left: Heart [employer] Antione 11/04/2020 4470 / [id number] / [employer] [id number] System 6-12fr Mvp Venous Closure Vascade - [id number] Implanted:Qty: 1 on 11/02/2019 by Steven Plunkett MD at [facility] Other - see comments Right: Groin [employer] 08/15/2021 800-612C- 10U / / [id number] Description:Vascade venous c losure device [employer] [id number] System 6-12fr Mvp Venous Closure Vascade - [id number] Implanted:Qty: 1 on 11/02/2019 by Steven Plunkett MD at [facility] Other - see comments Left: Groin [employer] 08/15/2021 800-612C- 10U / / [id number] Description:Vascade venous c losure device [employer] [id number] System 6-12fr Mvp Venous Closure Vascade - [id number] Implanted:Qty: 1 on 11/02/2019 by Steven Plunkett MD at [facility] Other - see comments Left: Groin [employer] 08/15/2021 800-612C- 10U / / [id number] Description:Vascade venous c losure device [employer] [id number] System 6-12fr Mvp Venous Closure Vascade - [id number] Implanted:Qty: 1 on 11/02/2019 by Steven Plunkett MD at [facility] Other - see comments Right: Groin [employer] 05/22/2021 800-612C- 10U / / [id number] Description:Vascade venous c losure device [employer] Antione 0673 [place] 4-Front 64cm Active Fixation Lead Icd - [id number] - [id number] Implanted:Qty: 1 on 11/30/2018 by Lori Veliz MD at [facility] Left: Heart [employer] Antione 12/07/2019 0673 / [id number] / [employer] [id number] System 6-12fr Mvp Venous Closure Vascade - [id number] Implanted:Qty: 1 on 07/16/2020 by Steven Plunkett MD at [facility] [employer] 05/12/2022 800-612C- 10U / / [id number] [employer] [id number] System 6-12fr Mvp Venous Closure Vascade - [id number] Implanted:Qty: 1 on 07/16/2020 by Steven Plunkett MD at [facility] [employer]ed[employer] 05/12/2022 800-612C- 10U / / [id number] [employer] [id number] System 6-12fr Mvp Venous Closure Vascade - [id number] Implanted:Qty: 1 on 07/16/2020 by Steven Plunkett MD at [facility] [employer] 05/12/2022 800-612C- 10U / / [id number] [employer] [id number] System 6-12fr Mvp Venous Closure Vascade - [id number] Implanted:Qty: 1 on 07/16/2020 by Steven Plunkett MD at [facility] [employer] 05/12/2022 800-612C- 10U / / [id number] Procedures Procedure Name Priority Date/Time Associated Diagnosis Comments CAGLE VISUAL FIELD - OU - BOTH EYES Routine 10/17/2024 11:00 AM CDT Angle-closure glaucoma, severe stage DEVICE CHECK - REMOTE Routine 09/21/2024 5:11 AM CDT ECG 12-LEAD Routine 09/19/2024 2:14 PM CDT Atrial fibrillation and flutter (HCC) DEVICE CHECK - IN OFFICE Routine 09/19/2024 1:48 PM CDT VT (ventricular tachycardia) (HCC) Fitting or adjustment of automatic implantable cardioverter-defibri llator EGFR Routine 08/27/2024 12:51 PM CDT High risk medication use Fatigue, unspecified type DIFFERENTIAL AUTO Routine 08/27/2024 12: 51 PM CDT High risk medication use Fatigue, unspecified type COMPREHENSIVE METABOLIC PANEL Routine 08/27/2024 12:51 PM CDT High risk medication use Fatigue, unspecified type CBC WITH AUTO DIFFERENTIAL Routine 08/27/2024 12:51 PM CDT High risk medication use Fatigue, unspecified type LIPID PANEL Routine 08/27/2024 12:51 PM CDT High risk medication use Fatigue, unspecified type Essential hypertension THYROID FUNCTION CASCADE Routine 08/27/2024 12:51 PM CDT High risk medication use Fatigue, unspecified type CT CHEST W WO AND ABDOMEN PELVIS W CONTRAST ED 04/03/2020 5:44 PM CDT from Last 3 Months or Most Recently Relevant to Health Maintenance Results * Cagle Visual Field - OU - Both Eyes (10/17/2024 11:00 AM CDT) Pathologist [facility] Pattern Deviation OS 10.71 dB CONTINUUM Pattern Deviation OD 8.24 dB CONTINUUM Mean Deviation OS -23.08 dB CONTINUUM Mean Deviation OD -29.74 dB CONTINUUM Anatomical Region Laterality Modality Head Visual Field Narrative 10/26/2024 3:39 PM CDT Right Eye Fixation was good. Cooperation was good. Reliability was good. Progression has been stable. Foveal threshold was reduced. Findings include superior arcuate defect, inferior arcuate defect. Mean Deviation was -29.74 dB. Pattern Deviation was 8.24 dB. Left Eye Fixation was good. Cooperation was good. Reliability was good. Foveal threshold was normal. Findings include superior arcuate defect, inferior arcuate defect. Mean Deviation was -23.08 dB. Pattern Deviation was 10.71 dB. Notes Cagle visual field (HVF) 10-2 Right eye (OD): temporal island Left eye (OS): superior temporal and inferior nasal island (stable to slight progression) Dorie Mathis OD OPHTH VISUAL FIELD Final R esult * DEVICE CHECK - REMOTE (09/21/2024 5:11 AM CDT) Anatomical Region Laterality Modality Other 09/21/2024 5:11 AM CDT Narrative 10/02/2024 4:24 PM CDT Interpretation Summary: Battery and Leads (BL) Normal parameters noted on battery and lead(s) --- 6 years remaining (this is an estimate based on prior usage) Presenting Rhythm (OR) Atrial Sensing-Ventricular Sensing (-VS) --- rate 60's Arrhythmic events (AE) No new arrhythmic events in monitoring period Anticoagulation (AC) Patient on anticoagulant therapy Patient prescribed Apixaban (Eliquis) Transmission Information (TI) Device Summary Report Procedure Note Steven Plunkett MD - 10/02/2024 Interpretation Summary: Battery and Leads (BL) Normal parameters noted on battery and lead(s) --- 6 years remaining(this is an estimate based on prior usage) Presenting Rhythm (OR) Atrial Sensing-Ventricular Sensing (-VS) --- rate 60's Arrhythmic events (AE) No new arrhythmic events in monitoring period Anticoagulation (AC) Patient on anticoagulant therapy Patient prescribed Apixaban (Eliquis) Transmission Information (TI) Device Summary Report Steven Plunkett MD [facility] PRO CEDURES Final Result * ECG 12 lead (09/19/2024 2:14 PM CDT) Kacie Castelan WEB UI DEVELOPER ECG ORDERABLES Edited R esult - Final * DEVICE CHECK - IN OFFICE (09/19/2024 1:48 PM CDT) Anatomical Region Laterality Modality Other 09/19/2024 2:00 AM CDT Narrative 10/02/2024 4:24 PM CDT Interpretation Summary: Battery and Leads (BL) Normal parameters noted on battery and lead(s) --- Estimate 7 years to DIEGO Anticoagulation (AC) Patient on anticoagulant therapy Patient prescribed Apixaban (Eliquis) Procedure Note Steven Plunkett MD - 10/02/2024 Interpretation Summary: Battery and Leads (BL) Normal parameters noted on battery and lead(s) --- Estimate 7 years toERI Anticoagulation (AC) Patient on anticoagulant therapy Patient prescribed Apixaban (Eliquis) Steven Plunkett MD [facility] C[facility] PRO CEDURES Final Result * eGFR (08/27/2024 12:51 PM CDT) eGFR >90 >=60 mL/min/1. 73 m2 Comment: Interpretive Data Reference Interval Normal >/= 90 mL/min/1.73m2 Mildly decreased* 60 - 89 mL/min/1.73m2 Mildly to moderately decreased 45 - 59 mL/min/1.73m2 Moderately to severely decreased 30 - 44 mL/min/1.73m2 Severely decreased 15 - 29 mL/min/1.73m2 Kidney Failure < 15 mL/min/1.73m2 *Relative to young adult level Estimated glomerular filtration rate is determined by the 2020 CKD-EPI equation recommended by the National Kidney Foundation (A Unifying Approach to GFR Estimation: Recommendations of the NKF-ASK Task Force on Reassessing the Inclusion of Race in Diagnosing Kidney Disease, JASN 2020). The CKD-EPI equation should not be used for patients with unstable renal function and has not been validated in children and those over 70. Current interpretive data was last reviewed 2021. Blood 08/27/2024 12:5 1 PM CDT 08/27/2024 1:38 PM CDT Luz Alarcon LAB BLOOD ORDERA BLES Final Result [facility] [address] Department [place] [address] * Differential, auto (08/27/2024 12:51 PM CDT) Neutrophil abs 2.7 1.5 - 6.5 K/cumm Imm gran abs 0.1 0.0 - 0.1 K/cumm [facility] Lymphocyte abs 1.1 0.8 - 3.3 K/cumm [facility] Monocyte abs 0.7 0.2 - 0.8 K/cumm [facility] Eosinophil abs 0.3 0.0 - 0.5 K/cumm [facility] Basophil abs 0.0 0.0 - 0.1 K/cumm [facility] Neutrophil pct 55.0 % [facility] Comment: Interpretive Data Percent cell count reference ranges are not reported, since discordance with absolute values may lead to misinterpretation of CBC data. Current Interpretive Data was last revised on 2017. Imm gran pct 1.0 % [facility] Comment: Interpretive Data Percent cell count reference ranges are not reported, since discordance with absolute values may lead to misinterpretation of CBC data. Current Interpretive Data was last revised on 2017. Lymphocyte pct 23.0 % [facility] Comment: Interpretive Data Percent cell count reference ranges are not reported, since discordance with absolute values may lead to misinterpretation of CBC data. Current Interpretive Data was last revised on 2017. Monocyte pct 13.8 % [facility] Comment: Interpretive Data Percent cell count reference ranges are not reported, since discordance with absolute values may lead to misinterpretation of CBC data. Current Interpretive Data was last revised on 2017. Eosinophil pct 6.6 % [facility] Comment: Interpretive Data Percent cell count reference ranges are not reported, since discordance with absolute values may lead to misinterpretation of CBC data. Current Interpretive Data was last revised on 2017. Basophil pct 0.6 % [facility] Comment: Interpretive Data Percent cell count reference ranges are not reported, since discordance with absolute values may lead to misinterpretation of CBC data. Current Interpretive Data was last revised on 2017. Blood 08/27/2024 12:5 1 PM CDT 08/27/2024 12:52 PM CDT [facility] BLOOD ORDERA BLES Final Result Performing Organization Address [facility] Co de Phone Number [facility] [address] [facility] [place] [address] [place] [address] * Thyroid Function [place] (08/27/2024 12:51 PM CDT) [facility] TSH 0.69 0.30 - 4.20 mcIUnit/mL Blood 08/27/2024 12:5 1 PM CDT 08/27/2024 12:52 PM CDT [facility] BLOOD ORDERA BLES Final Result Performing Organization Address [facility] de Phone Number [facility] [address] [facility] [address] [place], [place] [id number] * (ABNORMAL) CBC with auto differential (08/27/2024 12:51 PM CDT) [facility] WBC 4.9 3.8 - 9.9 K/cumm Hgb 12.2(L) 13.0 - 17.5 g/dL [facility] Hct 39.2 38.9 - 50.3 % [facility] Plt 248 150 - 400 K/cumm [facility] [facility] MPV 10.8 9.1 - 12.3 fL [facility] RBC 4.77 4.30 - 5.80 M/cumm [facility] MCV 82.2 81.3 - 96.4 fL [facility] MCH 25.6(L) 27.1 - 33.3 pg [facility] MCHC 31.1(L) 32.3 - 35.7 g/dL [facility] RDW CV 14.5 11.1 - 14.9 % [facility] RDW SD 43.3 35.7 - 48.1 fL [facility] NRBC abs 0.00 0.00 - 0.01 K/cumm [facility] Blood 08/27/2024 12:5 1 PM CDT 08/27/2024 12:52 PM CDT Luz Alarcon NP LAB BLOOD ORDERA BLES Final Result [facility] [id number] [facility]. Department [place] [address] * (ABNORMAL) Lipid panel (08/27/2024 12:51 PM CDT) Cholesterol 152 30 - 199 mg/dL Comment: Interpretive Data Ages < or = 19 years Acceptable: <170 mg/dL Borderline high: 170-199 mg/dL High: >or= 200 mg/dL Ages > or = 20 years Desirable: <200 mg/dL Borderline high: 200-239 mg/dL High: >or= 240 mg/dL Literature References: 1. Expert Panel on Integrated Guidelines for Cardiovascular Health and Risk Reduction in Children and Adolescents. Pediatrics 2011;128:S213 2. NCEP Expert Panel. Circulation 2004;110:227 Current Interpretive Data was last revised on 2018. Triglycerides 137 <=149 mg/dL [facility] Comment: Interpretive Data Ages < or = 9 years Acceptable: <75 mg/dL Borderline high: 75-99 mg/dL High: >or= 100 mg/dL Ages 10 to 20 years Acceptable: <90 mg/dL Borderline high: 90-129 mg/dL High: >or= 130 mg/dL Ages > or = 20 years Desirable: <150 mg/dL Borderline high: 150-199 mg/dL High: 200-499 mg/dL Very high: >or= 499 mg/dL Literature References: 1. Expert Panel on Integrated Guidelines for Cardiovascular Health and Risk Reduction in Children and Adolescents. Pediatrics 2011;128:S213 2. NCEP Expert Panel. Circulation 2004;110:227 Current Interpretive Data was last revised on 2018. HDL 32(L) >=40 mg/dL [facility] Comment: Interpretive Data Ages < or = 19 years Acceptable: >45 mg/dL Borderline low: 40-45 mg/dL Low: <40 mg/dL Ages > or = 20 years Desirable: >or= 60 mg/dL Low: <40 mg/dL Literature References: 1. Expert Panel on Integrated Guidelines for Cardiovascular Health and Risk Reduction in Children and Adolescents. Pediatrics 2011;128:S213 2. NCEP Expert Panel. Circulation 2004;110:227 Current Interpretive Data was last revised on 2018. LDL, calculated 95 <=129 mg/dL [facility] Comment: Interpretive Data Ages < or = 19 years Acceptable: <110 mg/dL Borderline high: 110-129 mg/dL High: >or= 130 mg/dL Ages > or = 20 years Optimal: <100 mg/dL Near optimal: 100-129 mg/dL Borderline high: 130-159 mg/dL High: >160 mg/dL Calculated using the Juaquin LDL-C estimating equation. This equation was implemented on 2024. Prior to this date LDL-C was estimated using the Friedewald equation. Literature References: 1. Expert Panel on Integrated Guidelines for Cardiovascular Health and Risk Reduction in Children and Adolescents. Pediatrics 2011;128:S213 2. NCEP Expert Panel. Circulation 2004;110:227 3. Juaquin Espinosa et al. GONZÁLEZ Cardiol. 2019October 11;5(5):540-548. doi: [email or web address] Current Interpretive Data was last revised on 2024. Non-HDL Cholesterol 120 mg/dL [facility] Comment: Interpretive Data Ages < or = 19 years Acceptable: <120 mg/dL Borderline high: 120-144 mg/dL High: >145 mg/dL Ages > or = 20 years When triglycerides are >200 mg/dL, Non-HDL cholesterol is a secondary target of therapy with treatment goals that are 30 mg/dL greater than the LDL cholesterol target. Literature References: 1. Expert Panel on Integrated Guidelines for Cardiovascular Health and Risk Reduction in Children and Adolescents. Pediatrics 2011;128:S213 2. NCEP Expert Panel. Circulation 2004;110:227 Current Interpretive Data was last revised on 2018. Chol/HDL ratio 5 [facility] Blood 08/27/2024 12:5 1 PM CDT 08/27/2024 12:52 PM CDT Luz Alarcon NP LAB BLOOD ORDERA BLES Final Result [facility] [id number] [facility]. Department [place] [address] * (ABNORMAL) Comprehensive metabolic panel (08/27/2024 12:51 PM CDT) Sodium 140 135 - 145 mmol/L Potassium, pl 4.6 3.3 - 4.9 mmol/L [facility] Chloride 105 97 - 110 mmol/L [facility] CO2 26 22 - 32 mmol/L [facility] Anion gap 9 2 - 15 mmol/L [facility] BUN 21 6 - 25 mg/dL [facility] Creatinine 0.69(L) 0.80 - 1.30 mg/dL [facility] Glucose 99 70 - 199 mg/dL [facility] Comment: Interpretive Data Fasting glucose >/= 126 mg/dl is diagnostic for diabetes. Fasting is defined as no caloric intake for at least 8 hours. Fasting glucose between 100 mg/dl to 125 mg/dl is diagnostic of prediabetes. In a patient with classic symptoms of hyperglycemia or hyperglycemic crisis, a random glucose >/= 200 mg/dl is diagnostic for diabetes. In the absence of unequivocal hyperglycemia, results should be confirmed by repeat testing. The classification and Diagnosis of Diabetes Diabetes Care 2021; 46: S19-S40. Current interpretive data was last revised 2022. Calcium 9.1 8.5 - 10.3 mg/dL [facility] Bilirubin, total 0.5 0.1 - 1.2 mg/dL [facility] Protein, pl 7.7 6.5 - 8.5 g/dL [facility] Albumin 4.3 3.5 - 5.0 g/dL [facility] Alk phos 66 40 - 130 Units/L [facility] ALT 57(H) 7 - 55 Units/L [facility] AST 47 10 - 50 Units/L [facility] Blood 08/27/2024 12:5 1 PM CDT 08/27/2024 12:52 PM CDT Luz Alarcon NP LAB BLOOD ORDERA BLES Final Result [facility] [id number] [facility]. [place] [address] * CT Chest W WO and Abdomen Pelvis W Contrast (C) (04/03/2020 5:44 PM CDT) Anatomical Region Laterality Modality Body N/A Computed Tomogra phy 04/03/2020 6:23 PM CDT Impressions 04/03/2020 7:24 PM CDT 1. No evidence of acute aortic syndrome. 2. Stable aneurysmal dilatation of the ascending aorta. 3. Dilated pulmonary arteries, unchanged when compared to 05/03/2019 and may be seen in the setting of pulmonary hypertension. Dictated by: Jules Vazquez M.D. The radiology attending physician has personally reviewed this study, and had reviewed and/or edited this written report and agrees with it. Electronically signed by: Jose Alberto Koch M.D. Narrative 04/03/2020 7:24 PM CDT EXAMINATION: 1. Computed tomography of the chest without and with intravenous contrast 2. Computed tomography of the abdomen and pelvis with intravenous contrast HISTORY: Chest and back pain, concern for aortic dissection. TECHNIQUE: Transaxial computed tomographic images of the chest were obtained without intravenous contrast, followed by images of the chest, abdomen, and pelvis after the uneventful administration of 125 mL Opti-Ray 350 intravenous contrast according to the dissection protocol. COMPARISON: CT dated 05/03/2019. FINDINGS: Chest: There is no intramural hematoma or acute aortic dissection. The ascending aorta is dilated, measuring up to 4.6 cm in size, stable when compared to the previous examination dated 05/03/2019.. This is unchanged when compared to the prior examination. Thoracic aorta is normal in course. There is a normal great vessel branching pattern. There is no evidence of pulmonary embolism. The main pulmonary artery and the right and left pulmonary arteries are enlarged. The right pulmonary artery measures up to 3.7 cm and the left measuring up to 3.6 cm. There is no supraclavicular, axillary, mediastinal, or hilar lymphadenopathy. The heart size is mildly enlarged. There is no pericardial effusion. There is a left chest pacemaker defibrillator with its leads terminating in the right atrium and right ventricle. A mitral annuloplasty is noted. The lungs are clear. No pleural effusion, pulmonary edema, focal consolidation, or pneumothorax. No suspicious pulmonary nodules are identified. There are right thoracotomy changes. Abdomen/Pelvis: A 2 cm hypoattenuating lesion is seen in the right hemiliver (slice position -365). There is no intrahepatic or extra hepatic biliary ductal dilatation. The spleen, pancreas, and bilateral adrenal glands are normal. The gallbladder is normal. The kidneys enhance symmetrically. There are simple cyst arising from the mid zone, upper pole, and lower pole of the right kidney. There is no hydronephrosis. No renal calculi are identified. The urinary bladder is normal. The prostate is moderately enlarged with calcifications. There is no free pelvic fluid. The colon is normal in course and caliber. There are are scattered diverticula without evidence of diverticulitis. There is no evidence of small bowel obstruction. The appendix is normal. The abdominal aorta is normal in course and caliber. The celiac trunk, superior mesenteric artery, and inferior mesenteric artery are patent. The right hepatic artery arises from the superior mesenteric artery. The left hepatic artery arises from the left gastric artery. There is no retroperitoneal, mesenteric, iliac, or inguinal lymphadenopathy. There is a 7 mm left external iliac lymph node, likely reactive. There is a small fat-containing umbilical hernia. No destructive osseous lesions are identified. Procedure Note Jose Alberto Koch MD - 04/03/2020 EXAMINATION: 1. Computed tomography of the chest without and with intravenous contrast 2. Computed tomography of the abdomen and pelvis with intravenous contrast HISTORY: Chest and back pain, concern for aortic dissection. TECHNIQUE: Transaxial computed tomographic images of the chest were obtained without intravenous contrast, followed by images of the chest, abdomen, and pelvis after the uneventful administration of 125 mL Opti-Ray 350 intravenous contrast according to the dissection protocol. COMPARISON: CT dated 05/03/2019. FINDINGS: Chest: There is no intramural hematoma or acute aortic dissection. The ascending aorta is dilated, measuring up to 4.6 cm in size, stable when compared to the previous examination dated 05/03/2019.. This is unchanged when compared to the prior examination. Thoracic aorta is normal in course. There is a normal great vessel branching pattern. There is no evidence of pulmonary embolism. The main pulmonary artery and the right and left pulmonary arteries are enlarged. The right pulmonary artery measures up to 3.7 cm and the left measuring up to 3.6 cm. There is no supraclavicular, axillary, mediastinal, or hilar lymphadenopathy. The heart size is mildly enlarged. There is no pericardial effusion. There is a left chest pacemaker defibrillator with its leads terminating in the right atrium and right ventricle. A mitral annuloplasty is noted. The lungs are clear. No pleural effusion, pulmonary edema, focal consolidation, or pneumothorax. No suspicious pulmonary nodules are identified. There are right thoracotomy changes. Abdomen/Pelvis: A 2 cm hypoattenuating lesion is seen in the right hemiliver (slice position -365). There is no intrahepatic or extra hepatic biliary ductal dilatation. The spleen, pancreas, and bilateral adrenal glands are normal. The gallbladder is normal. The kidneys enhance symmetrically. There are simple cyst arising from the mid zone, upper pole, and lower pole of the right kidney. There is no hydronephrosis. No renal calculi are identified. The urinary bladder is normal. The prostate is moderately enlarged with calcifications. There is no free pelvic fluid. The colon is normal in course and caliber. There are are scattered diverticula without evidence of diverticulitis. There is no evidence of small bowel obstruction. The appendix is normal. The abdominal aorta is normal in course and caliber. The celiac trunk, superior mesenteric artery, and inferior mesenteric artery are patent. The right hepatic artery arises from the superior mesenteric artery. The left hepatic artery arises from the left gastric artery. There is no retroperitoneal, mesenteric, iliac, or inguinal lymphadenopathy. There is a 7 mm left external iliac lymph node, likely reactive. There is a small fat-containing umbilical hernia. No destructive osseous lesions are identified. IMPRESSION: 1. No evidence of acute aortic syndrome. 2. Stable aneurysmal dilatation of the ascending aorta. 3. Dilated pulmonary arteries, unchanged when compared to 05/03/2019 and may be seen in the setting of pulmonary hypertension. Dictated by: Jules Vazquez M.D. The radiology attending physician has personally reviewed this study, and had reviewed and/or edited this written report and agrees with it. Electronically signed by: Jose Alberto Koch M.D. 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 ADVANCE DIRECTIVE 03/18/2011 12:00 AM [employer]CIAL/MEDICAL * Full Code (Latest Code Status on File) Date Activated Date Inactivated Comments 07/16/2020 4:18 PM 07/17/2020 2:20 PM * Full Code Date Activated Date Inactivated Comments 03/19/2020 7:31 PM 03/26/2020 11:21 PM * Full Code Date Activated Date Inactivated Comments 10/31/2019 9:16 AM 11/05/2019 8:00 PM * Full Code Date Activated Date Inactivated Comments 11/26/2018 11:13 PM 12/01/2018 6:10 PM * Full Code Date Activated Date Inactivated Comments 11/20/2018 1:33 PM 11/24/2018 8:27 PM Healthcare Agents on File Name Relationship Healthcare Agent Relationship Communication Kenyetta Eng Spouse Health Care Agent Care Teams Theology Professor Relationship Specialty Start Date End Date Damaris Yang PA PCP - General Family Practice 09/26/20 Leonard Connors MD Referring Physician Cardiology 03/09/18 Steven Plunkett MD Consulting Physician Cardiology 03/09/18
--- OUTSIDE RECORDS SUMMARY | 2024-11-15 13:44 | XMS_ITS | Referral Summary ---
Author Organization [facility] Address [address] [place] [address] Care Team Providers Care Slide Fastener Chain Assembler Name Role Phone Leonard Connors MD Unavailable Steven Plunkett MD Unavailable ParentDamaris Primary Care Provider Encounters Date Type Department Care Team Description 10/17/2024 11:00 AM CDT Imaging Exam [facility] [address] [place] [address] Angle-closure glaucoma, severe stage 10/17/2024 11:30 AM CDT Office Visit [facility] Eye [facility] [address] [place] [address] Dorie Mathis, OD Angle-closure glaucoma, secondary, bilateral, severe stage (Primary Dx); Legal blindness 10/02/2024 Telephone [facility] Ophthalmology [address] [place] [address] Dorie Mathis, OD 09/21/2024 Orders Only [facility] Cardiology [address] [place] [address] [address] [place] [phone] Steven Plunkett MD 09/19/2024 Results Follow-Up [facility] Cardiology [address] [place] [address] Office [address] [place] [phone] Kacie Castelan, CANDI ECG 12 lead 09/19/2024 2:45 PM CDT Office Visit [facility] Cardiology [address] [place] [address] Office [facility] [address] [place] [phone] Kacie Castelan NP Atrial fibrillation and flutter (HCC) (Primary Dx); VT (ventricular tachycardia) (HCC); ICD (implantable cardioverter-defibri llator) in place; High risk medication use 09/19/2024 2:15 PM CDT Ancillary Procedure [facility] Cardiology [address] [place] [address] Office [facility] [address] [place] [phone] VT (ventricular tachycardia) (HCC); Fitting or adjustment of automatic implantable cardioverter-defibri llator 08/27/2024 Results Follow-Up [facility] Cardiology [address] [place] [address] Office [facility] [address] [place] [phone] Luz Alarcon NP Thyroid Function [place], Lipid panel, CBC with auto differential, Additional followed-up results: 3 08/27/2024 12:40 PM CDT Lab [facility] [address] [place] [address] High risk medication use; Fatigue, unspecified type; Essential hypertension 08/27/2024 12:00 PM CDT Office Visit [facility] Cardiology [address] [place] [address] [phone] Luz Alarcon NP High risk medication use (Primary Dx); Fatigue, unspecified type; Essential hypertension 08/24/2024 Telephone [facility] Cardiology [address] [facility] 8th [place] [address] [place] [phone] Steven Plunkett MD from Last 3 Months Allergies Active Allergy Reactions Criticality Noted Date [...] 01/05/2022 Assessment & Plan (06/16/2023 3:28 PM REGISTER CLERK): Rx doxy 100 mg BID Pt reports [...] 03/20/2020 Assessment & Plan (07/17/2020 11:24 AM REGISTER CLERK): S/p VT ablation. Tolerated well. No VT overnight on telemetry. Cleared for discharge by EP. - Held home Eliquis immediately post-procedure, resume today - Continue home Sotalol, Mexiletine - EP Cardiology follow-up Assessment & Plan (07/16/2020 5:29 PM REGISTER CLERK): S/p VT ablation. - Monitor overnight - [...] appropriate ICD shocks for VT Most recent [facility] 11/2018 with no significant CAD ECHO 03/20 [...] with Amiodarone in the past -Most recent [facility] 11/2018 with no significant CAD -ECHO 03/20 with grossly normal LV/RV size and systolic function (estimated LVEF 60%), diastolic dysfunction -Sotalol increased to 160mg BID this admission, increased to 180mg 03/24 -Started on Lidocaine gtt 1mg/min 03/22 PM due [...] with Amiodarone in the past -Most recent [facility] 11/2018 with no significant CAD -ECHO 03/20 with grossly normal LV/RV size and systolic function (estimated LVEF 60%), diastolic dysfunction -Sotalol increased to 160mg BID this admission, will increase to 180mg BID today -Started on Lidocaine gtt 1mg/min 03/22 PM due [...] dose -Continuous uninterrupted telemetry monitoring -Most recent [facility] 11/2018 with no significant CAD -ECHO 03/20 [...] today paced with QTc 464 -Most recent [facility] 11/2018 with no significant CAD -ECHO 03/20 [...] no recurrence likely discharge Tuesday Most recent [facility] 11/2018 with no significant CAD ECHO 03/20 [...] sotalol and metoprolol for now Most recent [facility] 11/2018 with no significant CAD Echo 10/2019 [...] starting late 10/29 at home. Brought to [facility] ED and given IV K/Mg and started on Lidocaine infusion, transferred to [facility] CCU. - [employer] rep called; device interrogated - EP [...] dose Positive stress test : plan for C on Tuesday ( currently can not do [...] 03/14/2017 Assessment & Plan (07/05/2023 10:47 AM REGISTER CLERK): Update Rx Assessment & Plan (07/18/2018 3:17 PM REGISTER CLERK): Noted on original exam with Dr Gabriel [...] OU Assessment & Plan (07/05/2023 10:48 AM REGISTER CLERK): CPM Assessment & Plan (06/16/2023 3:29 PM REGISTER CLERK): IOPs low, adequate for visual field (VF) [...] drops Assessment & Plan (07/18/2018 3:13 PM REGISTER CLERK): intraocular pressure (IOP) at goal on 2 [...] Plus Assessment & Plan (07/17/2020 11:24 AM REGISTER CLERK): - CPAP Assessment & Plan (07/16/2020 5:29 PM REGISTER CLERK): - CPAP Assessment & Plan (03/25/2020 9:54 [...] continue home CPAP nightly Coronary arteriosclerosis in [place] artery 01/13 Essential hypertension 05/06/2015 Assessment & Plan (07/17/2020 11:25 AM REGISTER CLERK): - Continue home Norvasc, Losartan, Metoprolol, Sotalol Assessment & Plan (07/16/2020 5:30 PM REGISTER CLERK): - Continue home Norvasc, Losartan, Metoprolol, Sotalol [...] monitoring Assessment & Plan (07/25/2018 10:39 AM REGISTER CLERK): - currently with systolics in the 80s, asymptomatic - plan to restart his beta shelly tonight per cards recs - still holding lisinopril and spironolactone, will defer restarting until patient can be reevaluated with PCP or cardiology Assessment & Plan (07/24/2018 6:41 PM REGISTER CLERK): - currently normotensive - plan to restart [...] Plan (03/21/2020 9:58 AM CDT): S/P MAZE 2016 with recurrent [...] 12/02. Assessment & Plan (07/25/2018 10:38 AM REGISTER CLERK): - s/p ablation - with EP: - plan to continue eliquis for at least 6-12 months, and dofetilide for the next 1-2 months. - restart beta shelly - PPI x1 mo - telemetry Assessment & Plan (07/24/2018 6:42 PM REGISTER CLERK): - s/p ablation today with EP: Plan [...] 4 beats of V-tach. -s/p maze in 2016 -[id number] score of 2 points -continue metoprolol 25 [...] Date Diagnosed Date Resolved Date Ventricular tachycardia 11/26/20180 09/2020 Overview (11/28/2018): Added automatically from request for surgery [id number] Assessment & Plan (11/04/2019 10:26 AM CDT): VT storm and transferred to [facility] (total 28 ICD shocks). Arhythmias controlled with normalization of electrolytes and lidocaine. Allergy/intolerant to amio. - s/p VT RFA on 11/01 - now on sotalol load (first dose 11/01 PM); c/w sotalol 120 mg BID - EKG 2 hours post dose -c/w apixaban 5mg bid Assessment & Plan (11/02/2019 3:36 PM CDT): VT storm and transferred to [facility] (total 28 ICD shocks). Arhythmias controlled with [...] Cooper. 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 Immunizations Immunization Administration Dates Next Due Influenza, Quadrivalent, Split, Intramuscular Influenza, Quadrivalent, Spl it, Preservative Free, Intramuscular 03/21/2020,02/28/2018 Influenza, Unspecified 03/02/2016 Tdap 07/15/2015,05/18/2006 Social History Tobacco Use Types Packs/Day Years Used Date Smoking Tobacco: Former Cigarettes 1 10 1 980 - 1988 Cigars Passive Smoke Exposure: Past Smokeless [...] on file Legal Sex Male 6:13 AM REGISTER CLERK Gender Identity Male 03/20/2021 9:13 AM CDT Sexual Orientation Straight 03/20/2021 9: 13 AM CDT Occupation Industry Job Start Date Job End Date retired Not on file Not on file Not on file Last Filed Vital Signs Vital Sign Reading [...] 09/19/2024 2:26 PM CDT Plan of Treatment Not on file Medical Devices Implanted Type Area Visitor Use Assistant Device Identifier Shelf Expiration Date Model / Serial / Lot [employer]ig [employer] [id number] Angio-Seal Evolution 6fr .035in Guidewire Bypass Tube Suture - [id number] Implanted:Qty: 1 on 11/24/2018 by Jose E Mclain MD at [facility] Collagen [employer] 08/11/2019 [id number] / / [id number] [employer] Antione D152 Dynagen Enduralife Easyview Hf Perspectiv 5.37x7.68cm 2 Chamber - [id number] - [id number] Implanted:Qty: 1 on 11/30/2018 by Lori Veliz MD at [facility] ICD Left: Chest [employer] Antione 09/25/2020 D152 / [id number] / [employer] Antione 4470 Fineline Ii Sterox Ez 1.7mm 52cm Bipolar Active Fixation Screw - [id number] - [id number] Implanted:Qty: 1 on 11/30/2018 by Lori Veliz MD at [facility] Lead Left: Heart [employer] Antione 11/04/2020 4470 / [id number] / [employer] [id number] System 6-12fr Mvp Venous Closure Vascade - [id number] Implanted:Qty: 1 on 11/02/2019 by Steven Plunkett MD at [facility] Other - see comments Right: Groin [employer] 08/15/2021 800-612C- 10U / / [id number] Description:Vascade venous c losure device [employer] [id number] System 6-12fr Mvp Venous Closure Vascade - [id number] Implanted:Qty: 1 on 11/02/2019 by Steven Plunkett MD at [facility] Other - see comments Left: Groin [employer] 08/15/2021 800-612C- 10U / / [id number] [id number] Description:Vascade venous c losure device [employer] [id number] System 6-12fr Mvp Venous Closure Vascade - [id number] Implanted:Qty: 1 on 11/02/2019 by Steven Plunkett MD at [facility] Other - see comments Left: Groin [employer] 08/15/2021 800-612C- 10U / / [id number] Description:Vascade venous c losure device [employer] [id number] System 6-12fr Mvp Venous Closure Vascade - [id number] Implanted:Qty: 1 on 11/02/2019 by Steven Plunkett MD at [facility] Other - see comments Right: Groin [employer] 05/22/2021 800-612C- 10U / / [id number] Description:Vascade venous c losure device [employer] Antione 0673 Burt 4-Front 64cm Active Fixation Lead Icd - [id number] - [id number] Implanted:Qty: 1 on 11/30/2018 by Lori Veliz MD at [facility] Left: Heart [employer] Antione 12/07/2019 0673 / [id number] / [employer] [id number] System 6-12fr Mvp Venous Closure Vascade - [id number] Implanted:Qty: 1 on 07/16/2020 by Steven Plunkett MD at [facility] [employer] 05/12/2022 800-612C- 10U / / [id number] [employer] [id number] System 6-12fr Mvp Venous Closure Vascade - [id number] Implanted:Qty: 1 on 07/16/2020 by Steven Plunkett MD at [facility] [employer] 05/12/2022 800-612C- 10U / / [id number] [employer] [id number] System 6-12fr Mvp Venous Closure Vascade - [id number] Implanted:Qty: 1 on 07/16/2020 by Steven Plunkett MD at [facility] [employer] 05/12/2022 800-612C- 10U / / [id number] [id number] [employer] [id number] System 6-12fr Mvp Venous Closure Vascade - [id number] Implanted:Qty: 1 on 07/16/2020 by Steven Plunkett MD at [facility] [employer] 05/12/2022 800-612C- 10U / / [id number] Procedures Procedure Name Priority Date/Time Associated [...] - Both Eyes (10/17/2024 11:00 AM CDT) Pattern Deviation OS 10.71 dB CONTINUUM Pattern [...] estimate based on prior usage) Presenting Rhythm (AL) Atrial Sensing-Ventricular Sensing (-VS) --- rate 60's [...] estimate based on prior usage) Presenting Rhythm (AL) Atrial Sensing-Ventricular Sensing (-VS) --- rate 60's Arrhythmic events (AE) No new arrhythmic events in monitoring period Anticoagulation (AC) Patient on anticoagulant therapy Patient prescribed Apixaban (Eliquis) Transmission Information (TI) Device Summary Report us Steven Plunkett MD CV CARDIAC SERVICES PRO CEDURES Final Result * ECG 12 lead (09/19/2024 2:14 PM CDT) us Kacie Castelan SALES COMMUNICATIONS MANAGER ECG ORDERABLES Edited R esult - Final [...] of Race in Diagnosing Kidney Disease, JASN 202). The CKD-EPI equation should not be used for patients with unstable renal function and has not been validated in children and those over 70. Current interpretive data was last reviewed 2021. Blood 08/27/2024 12:5 1 PM CDT 08/27/2024 1:38 PM CDT Luz Alarcon SALES COMMUNICATIONS MANAGER LAB BLOOD ORDERA BLES Final Result [facility] [address] [facility]. [place] [address] * Differential, auto (08/27/2024 12:51 PM CDT) Neutrophil abs 2.7 1.5 - 6.5 K/cumm Imm gran abs 0.1 0.0 - 0.1 K/cumm [facility] Lymphocyte abs 1.1 0.8 - 3.3 K/cumm [facility] Monocyte abs 0.7 0.2 - 0.8 K/cumm [facility] Eosinophil abs 0.3 0.0 - 0.5 K/cumm [facility] Basophil abs 0.0 0.0 - 0.1 K/cumm [facility] Neutrophil pct 55.0 % [facility] Comment: Interpretive Data Percent cell count reference ranges are not reported, since discordance with absolute values may lead to misinterpretation of CBC data. Current Interpretive Data was last revised on 2017. Imm gran pct 1.0 % [facility] Comment: Interpretive Data Percent cell count reference ranges are not reported, since discordance with absolute values may lead to misinterpretation of CBC data. Current Interpretive Data was last revised on 2017. Lymphocyte pct 23.0 % [facility] Comment: Interpretive Data Percent cell count reference ranges are not reported, since discordance with absolute values may lead to misinterpretation of CBC data. Current Interpretive Data was last revised on 2017. Monocyte pct 13.8 % [facility] Comment: Interpretive Data Percent cell count reference ranges are not reported, since discordance with absolute values may lead to misinterpretation of CBC data. Current Interpretive Data was last revised on 2017. Eosinophil pct 6.6 % [facility] Comment: Interpretive Data Percent cell count reference ranges are not reported, since discordance with absolute values may lead to misinterpretation of CBC data. Current Interpretive Data was last revised on 2017. Basophil pct 0.6 % [facility] Comment: Interpretive Data Percent cell count reference ranges are not reported, since discordance with absolute values may lead to misinterpretation of CBC data. Current Interpretive Data was last revised on 2017. Blood 08/27/2024 12:5 1 PM CDT 08/27/2024 12:52 PM CDT us Luz Alarcon NP LAB BLOOD ORDERA BLES Final Result [facility] [address] [facility] [place] [address] * Thyroid Function [place] (08/27/2024 12:51 PM CDT) [facility] TSH 0.69 0.30 - 4.20 mcIUnit/mL Blood 08/27/2024 12:5 1 PM CDT 08/27/2024 12:52 PM CDT Luz Alarcon NP LAB BLOOD ORDERA BLES Final Result Performing Organization Address City/[facility] Co de Phone Number [facility] [address] [facility] [place] [address] * (ABNORMAL) CBC with auto differential (08/27/2024 12:51 PM CDT) [facility] WBC 4.9 3.8 - 9.9 K/cumm Hgb 12.2(L) 13.0 - 17.5 g/dL [facility] Hct 39.2 38.9 - 50.3 % [facility] Plt 248 150 - 400 K/cumm [facility] MPV 10.8 9.1 - 12.3 fL [facility] RBC 4.77 4.30 - 5.80 M/cumm [facility] MCV 82.2 81.3 - 96.4 fL [facility] MCH 25.6(L) 27.1 - 33.3 pg [facility] MCHC 31.1(L) 32.3 - 35.7 g/dL [facility] RDW CV 14.5 11.1 - 14.9 % [facility] RDW SD 43.3 35.7 - 48.1 fL [facility] NRBC abs 0.00 0.00 - 0.01 K/cumm [facility] Blood 08/27/2024 12:5 1 PM CDT 08/27/2024 12:52 PM CDT Luz Alarcon NP LAB BLOOD ORDERA BLES Final Result [facility] [address] [facility]. [place] [address] * (ABNORMAL) Lipid panel (08/27/2024 12:51 PM [...] Circulation 2004;110:227 3. Juaquin Espinosa et al. GONZÁLZE Cardiol. 2019October 11;5(5):540-548. doi: 10.1001/[email or web address].2020.0013 Current Interpretive [...] last revised on 2018. Chol/HDL ratio 5 [facility] Blood 08/27/2024 12:5 1 PM CDT 08/27/2024 12:52 PM CDT Luz Alarcon NP LAB BLOOD ORDERA BLES Final Result [facility] [address] [facility]. Department [place] [address] * (ABNORMAL) Comprehensive metabolic panel (08/27/2024 12:51 [...] [facility] AST 47 10 - 50 Units/L [facility] Blood 08/27/2024 12:5 1 PM CDT 08/27/2024 12:52 PM CDT Luz Alarcon NP LAB BLOOD ORDERA BLES Final Result [facility] [address] [facility]. 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
--- OUTSIDE RECORDS SUMMARY | 2024-11-15 13:44 | XMS_ITS | Encounter Summary ---
Author Organization [facility] Address [address] [place] [address] Phone Care Team Providers Care Pet Ambassador Name Role Phone Leonard Connors MD Unavailable [phone] Steven Plunkett MD Unavailable [phone] Rosalba Solorio MD Primary Care Provider + Rosalba Solorio MD Primary Care Provider + Rosalba Solorio MD Primary Care Provider + Damaris Yang Primary Care Provider + [phone] Rosalba Solorio MD Primary Care Provider + Damaris Yang Primary Care Provider + [phone] Encounter Details Date Type Department Care Team (Latest Contact Info) Description 05/30/2019 Orders Only [facility] Scanning, Provider Social History Tobacco Use Types Packs/Day Years Used Date Smoking Tobacco: Former Cigarettes 1 10 1 979 - 1988 Cigars Smokeless Tobacco: Current Chew Alcohol Use Standard Drinks/Week Comments No 0 (1 standard drink = 0.6 oz pur e alcohol) Sex and Gender Information Value Date Recorded Sex Assigned at Not on file Legal Sex Male 6:13 AM GOLD LETTERER Gender Identity Male 03/20/2021 9:13 AM CDT Sexual Orientation Straight 03/20/2021 9: 13 AM CDT Occupation Industry Job Start Date Job End Date retired Not on file Not on file Not on file documented as of this encounter Plan of Treatment Not on file documented as of this encounter Procedures Procedure Name Priority Date/Time Associated Diagnosis Comments CARDIOLOGY DOCUMENT SCAN 05/30/2019 documented in this encounter Results * SCAN - CARDIOLOGY (05/30/2019) Anatomical Region Laterality Modality Other us Provider Scanning CV CARDIAC SERVICES PROCEDURES Final Result documented in this encounter Visit Diagnoses Not on filedocumented in this encounter Additional Health Concerns Infection Onset Date Last Indicated Resolved Time MRSA Comment:following hernia surgery in past 04/22/2020 04/21/2020 01/28/2021 5:00 AM C DT documented as of this encounter Care Teams Pet Ambassador Relationship Specialty Start Date End Date Rosalba Solorio MD [address] [place] [address] PCP - General 11/24/18 03/17/20 Rosalba Solorio MD [address] [place] [address] PCP - General 03/19/20 06/15/20 Rosalba Solorio MD [address] [facility] [place] [address] PCP - General 03/18/20 03/18/20 Damaris Yang PA [address] [place] [address] PCP - General Family Practice 06/16/20 07/15/20 Rosalba Solorio MD [address] [place] [address] PCP - General 07/16/20 09/25/20 Damaris Yang PA [address] [place] [address] PCP - General Family Practice 09/26/20 Leonard Connors MD Referring Physician Cardiology 03/09/18 Steven Plunkett MD Consulting Physician Cardiology 03/09/18 documented as of this encounter
--- OUTSIDE RECORDS SUMMARY | 2024-11-15 13:44 | XMS_ITS | Encounter Summary ---
Author Organization [facility] Address [address] [place] [address] Phone Care Team Providers Care Television Actor Name Role Phone Leonard Connors MD Unavailable Steven Plunkett MD Unavailable Damaris Yang Primary Care Provider Encounter Details Date Type Department Care Team (Late st Contact Info) Description 09/19/2024 Results Follow-Up [facility] Cardiology [address] [facility] Medical Office Building [address] [place] [address] Kacie Castelan, CANDI [address] 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 Gender Identity Male 03/20/2021 9:13 AM CDT Sexual Orientation Straight 03/20/2021 9: 13 AM CDT Occupation Industry Job Start Date Job End Date retired Not on file Not on file Not on file documented as of this encounter Plan of Treatment Not on file documented as of this encounter Visit Diagnoses Not on filedocumented in this encounter Care Teams Television Actor Relationship Specialty Start Date End Date Damaris Yang PA PCP - General Family Practice 09/26/20 Leonard Connors MD Referring Physician Cardiology 03/09/18 Steven Plunkett MD Consulting Physician Cardiology 03/09/18 documented as of this encounter
--- OUTSIDE RECORDS SUMMARY | 2024-11-15 13:44 | XMS_ITS | Encounter Summary ---
Author Organization [facility] Address [address] [place] [address] Phone Care Team Providers Care Software Lead Name Role Phone Rosalba Solorio MD Primary Care Provider + Leonard Connors MD Unavailable [phone] Steven Plunkett MD Unavailable [phone] Damaris Yang Primary Care Provider + [phone] Rosalba Solorio MD Primary Care Provider + Rosalba Solorio MD Primary Care Provider + Rosalba Solorio MD Primary Care Provider + Damaris Yang Primary Care Provider + [phone] Rosalba Solorio MD Primary Care Provider + Damaris Yang Primary Care Provider + [phone] Encounter Details Date Type Department Care Team (Late st Contact Info) Description 05/22/[address] [facility] Cardiology [address] [place] [address] [place] [address] Steven Plunkett MD [address] [place] [address] Social History Tobacco Use Types Packs/Day Years Used Date Smoking Tobacco: Former Cigarettes 1 10 979 - 1988 Cigars Smokeless Tobacco: Current Chew Alcohol Use Standard Drinks/Week Comments No 0 (1 standard drink = 0.6 oz pur e alcohol) Sex and Gender Information Value Date Recorded Sex Assigned at Not on file Legal Sex Male 6:13 AM [employer] Gender Identity Male 03/20/2021 9:13 AM CDT Sexual Orientation Straight 03/20/2021 9: 13 AM CDT documented as of this encounter Plan of Treatment Not on file documented as of this encounter Visit Diagnoses Not on filedocumented in this encounter Additional Health Concerns Infection Onset Date Last Indicated Resolved Time MRSA Comment:following hernia surgery in past 04/22/2020 04/21/2020 01/28/2021 5:00 AM C DT documented as of this encounter Care Teams Software Lead Relationship Specialty Start Date End Date Rosalba Solorio MD [address] [place] [address] PCP - General 08/09/16 11/22/18 Damaris Yang PA [address] [place] [address] PCP - General Family Practice 11/23/18 11/23/18 Rosalba Solorio MD [address] [place] [address] PCP - General 11/24/18 03/17/20 Rosalba Solorio MD [address] [place] [address] PCP - General 03/19/20 06/15/20 Rosalba Solorio MD [address] [place] [address] PCP - General 03/18/20 03/18/20 Damaris Yang PA [address] [place], [place] [address] PCP - General Family Practice 06/16/20 07/15/20 Rosalba Solorio MD [address] [place], [place] [address] PCP - General 07/16/20 09/25/20 Damaris Yang PA [address] [place], [place] [id number] PCP - General Family Practice 09/26/20 Leonard Connors MD [address] [place], [place] [address] Referring Physician Cardiology 03/09/18 Steven Plunkett MD [address] [place], [place] [id number] Consulting Physician Cardiology 03/09/18 documented as of this encounter
--- OUTSIDE RECORDS SUMMARY | 2024-11-15 13:44 | XMS_ITS | Data Portability ---
Author Organization BRIAN Tennille TRIVEDI Address [address] [facility] [place] [address] Care Team Providers Care Patrol Captain Name Role Phone EDWAR WHITE Buyer Tobacco Head Assessment No assessment recorded. Plan of Treatment Reminders Order Date Submit Date Provider Last Modified By Organization Details Last Modified Time Details Appointments ANNUAL 30 2024 02:00P CAN Lacy Not available Not available Not available Lab magnesium , serum or plasma 2024 025 [facility], [address] [facility], [place], [address], 11/14/2024 15:38:26 CK (creatine kinase), total, serum 2024 025 [facility], [address] [facility], [place], [address], 11/14/2024 15:38:29 CMP, serum or plasma 2024 025 [facility], [address] , [place], [address], 11/14/2024 15:38:27 glucose, fingersti ck, blood 2024 025 [email or web address] In-Office Order, Internal Use Only DO Not Attach Compendium DO Not Attach Compendium, Do Not Delete/merge, [id number] 11/13/2024 16:00:21 influenza virus A + B + SARS-CoV- 2 (COVID19) Ag panel, rapid IA, upper respirato ry specimen 2024 025 [email or web address] In-Office Order, Internal Use Only DO Not Attach Compendium DO Not Attach Compendium, Do Not Delete/merge, [id number] 07/12/2024 16:16:19 rapid strep group A, throat 2024 025 [email or web address] In-Office Order, Internal Use Only DO Not Attach Compendium DO Not Attach Compendium, Do Not Delete/merge, [id number] 07/12/2024 16:16:19 culture, aerobic 2023 024 KATIE [facility], [address], [place], [address], 05/19/2024 07:19:32 influenza virus A + B + SARS-CoV- 2 (COVID19) Ag panel, rapid IA, upper respirato ry specimen 2023 024 KATIE In-Office Order, Internal Use Only DO Not Attach Compendium DO Not Attach Compendium, Do Not Delete/merge, [id number] 03/14/2024 16:08:43 Referral orthopedi c surgeon referral - Please contact patient for appt, thanks! 2023 024 KATIE Christianson MD, [facility] , [address] [address], [place], [address], 03/13/2024 20:33:52 Procedures cryosurge ry (PROC) 2023 024 [email or web address] Not available 03/06/2024 13:40:32 Surgeries None recorded. Imaging None recorded. Medication Orders Tamiflu 75 mg capsule 2024 025 [facility], [address], [place], [place], [id number], 07/12/2024 16:16:55 benzonata te 200 mg capsule 2024 025 [email or web address]72, [address], [place], [place], [id number], 11/13/2024 15:40:12 cephalexi n 500 mg tablet 2023 025 [facility] #80593, [address] , [place], [place], [id number], 07/12/2024 15:40:30 Augmentin 875 mg-125 mg tablet 2023 025 [facility], [address] [facility], [place], [place], [id number], 07/12/2024 15:40:47 Voltaren Arthritis Pain 1 % topical gel 2023 024 [facility], [address] , [place], [place], [id number], 01/30/2024 12:29:36 Patient TargetsNo targets recorded. Patient InstructionsNo instructions recorded. 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 Referring Physician: Damaris Yang, Family Medicine, Encounter Date: 01/30/2024 Results Created Date Observation Date Name Description Value Unit Range Abnormal Flag Note LastModifiedBy Organization Detail LastModifiedTime 01/04/2001/05/2024 LIPID PANEL , STAND SEGUN cholesterol, total 165 mg/dL <200 normal Not Available [facility] [address] [address] [place], [address], 01/05/2024 04:41:53 01/04/2001/05/2024 LIPID PANEL , STAND SEGUN HDL cholesterol 33 mg/dL > or = 40 low Not Available [email or web address] [address] [place], [address], 01/05/2024 04:41:53 01/04/2001/05/2024 LIPID PANEL , STAND SEGUN triglyceride s 166 mg/dL <150 high Not Available prollie [facility] [address] [place], [address], 01/05/2024 04:41:53 01/04/2001/05/2024 LIPID PANEL , STAND SEGUN LDL-choleste rol 104 mg/dL _(shelby c) high Refer ence range : <100 Jaspal able range <100 mg/dL for prima ry preve ntion ; <70 mg/dL for patie nts with CHD or diabe tic patie nts with > or = 2 CHD risk facto rs. LDL-C is now calcu lated using the Sapphire n-Hop kins calcu brant n, which is a valid ated novel metho d provi ding perez r accur acy than the Fried shukri equat ion in the estim ation of LDL-C . Sapphire bustillos SS et al. GONZÁLEZ. 2013; 310(1 9): 2061- 2068 (http ://ed ucati on.[employer]aud[employer]. com/f aq/FA Q164) Not Available [email or web address] [address] [address] [place], [address], 01/05/2024 04:41:53 01/04/2001/05/2024 LIPID PANEL , STAND SEGUN chol/HDLC ratio 5.0 (calc ) <5.0 high Not Available [email or web address] [address] [place], [address], 01/05/2024 04:41:53 01/04/2001/05/2024 LIPID PANEL , STAND SEGUN non HDL cholesterol 132 mg/dL _(shelby c) <130 high For patie nts with diabe too plus 1 major ASCVD risk facto r, treat ing to a non-H DL-C goal of <100 mg/dL (LDL- C of <70 mg/dL ) is consi dered a thera peuti c optio n. Not Available [email or web address] [address] [place], [address], 01/05/2024 04:41:53 01/04/2001/05/2024 COMPR EHENS LISA METAB OLIC PANEL glucose 107 mg/dL 65-99 high Fasti ng refer ence inter ramona For someo ne witho ut known diabe too, a gluco se value betwe en 100 and 125 mg/dL is consi stent with predi abete s and shoul d be confi rmed with a follo w-up test. Not Available [address], [address], 01/05/2024 04:41:54 01/04/20 24 01/05/2024 COMPR EHENS LISA METAB OLIC PANEL urea nitrogen (BUN) 18 mg/dL 7-25 normal Not Available [address], [address], 01/05/2024 04:41:54 01/04/2001/05/2024 COMPR EHENS LISA METAB OLIC PANEL creatinine 0.64 mg/dL 0.70-1 .35 low Not Available [address], [address], 01/05/2024 04:41:54 01/04/20 24 01/05/2024 COMPR EHENS LISA METAB OLIC PANEL eGFR 105 mL/mi n/1.7 3m2 > or = 60 normal Not Available [address], [address], 01/05/2024 04:41:54 01/04/20 24 01/05/2024 COMPR EHENS LISA METAB OLIC PANEL BUN/creatini ne ratio 28 (calc ) 6-22 high Not Available [address], [address], 01/05/2024 04:41:54 01/04/20 24 01/05/2024 COMPR EHENS LISA METAB OLIC PANEL sodium 138 mmol/ L 135-14 6 normal Not Available [address], [address], 01/05/2024 04:41:54 01/04/20 24 01/05/2024 COMPR EHENS LISA METAB OLIC PANEL potassium 4.3 mmol/ L 3.5-5. 3 normal Not Available [address] [place], [address], 01/05/2024 04:41:54 01/04/20 24 01/05/2024 COMPR EHENS LISA METAB OLIC PANEL chloride 102 mmol/ L 98-110 normal Not Available [address], [address], 01/05/2024 04:41:54 01/04/20 24 01/05/2024 COMPR EHENS LISA METAB OLIC PANEL carbon dioxide 29 mmol/ L 20-32 normal Not Available [address], [address], 01/05/2024 04:41:54 01/04/20 24 01/05/2024 COMPR EHENS LISA METAB OLIC PANEL calcium 9.2 mg/dL 8.6-10 .3 normal Not Available [address], [address], 01/05/2024 04:41:54 01/04/2001/05/2024 COMPR EHENS LISA METAB OLIC PANEL protein, total 7.0 g/dL 6.1-8. 1 normal Not Available [address], [address], 01/05/2024 04:41:54 01/04/20 24 01/05/2024 COMPR EHENS LISA METAB OLIC PANEL albumin 4.4 g/dL 3.6-5. 1 normal Not Available [facility] [address], [address], 01/05/2024 04:41:54 01/04/20 24 01/05/2024 COMPR EHENS LISA METAB OLIC PANEL globulin 2.6 g/dL_ (calc ) 1.9-3. 7 normal Not Available [address], [address], 01/05/2024 04:41:54 01/04/20 24 01/05/2024 COMPR EHENS LISA METAB OLIC PANEL albumin/glob ulin ratio 1.7 (calc ) 1.0-2. 5 normal Not Available [address], [address], 01/05/2024 04:41:54 01/04/20 24 01/05/2024 COMPR EHENS LISA METAB OLIC PANEL bilirubin, total 0.5 mg/dL 0.2-1. 2 normal Not Available [address], [address], 01/05/2024 04:41:54 01/04/20 24 01/05/2024 COMPR EHENS LISA METAB OLIC PANEL alkaline phosphatase 64 U/L 35-144 normal Not Available [address], [address], 01/05/2024 04:41:54 01/04/20 24 01/05/2024 COMPR EHENS LISA METAB OLIC PANEL AST 43 U/L 10-35 high Not Available [address], [address], 01/05/2024 04:41:54 01/04/20 24 01/05/2024 COMPR EHENS LISA METAB OLIC PANEL ALT 50 U/L 9-46 high Not Available [address], [address], 01/05/2024 04:41:54 01/04/20 24 01/05/2024 CBC (INCL UDES DIFF/ PLT) white blood cell count 5.3 thous and/u L 3.8-10 .8 normal Not Available [address], [address], 01/05/2024 04:41:54 01/04/20 24 01/05/2024 CBC (INCL UDES DIFF/ PLT) red blood cell count 4.89 patricia on/uL 4.20-5 .80 normal Not Available [address], [address], 01/05/2024 04:41:54 01/04/20 24 01/05/2024 CBC (INCL UDES DIFF/ PLT) hemoglobin 13.2 g/dL 13.2-1 7.1 normal Not Available [address], [address], 01/05/2024 04:41:54 01/04/20 24 01/05/2024 CBC (INCL UDES DIFF/ PLT) hematocrit 41.6 % 38.5-5 0.0 normal Not Available [address], [address], 01/05/2024 04:41:54 01/04/2001/05/2024 CBC (INCL UDES DIFF/ PLT) MCV 85.1 fL 80.0-1 00.0 normal Not Available [address], [address], 01/05/2024 04:41:54 01/04/2001/05/2024 CBC (INCL UDES DIFF/ PLT) MCH 27.0 pg 27.0-3 3.0 normal Not Available [address], [address], 01/05/2024 04:41:54 01/04/20 24 01/05/2024 CBC (INCL UDES DIFF/ PLT) MCHC 31.7 g/dL 32.0-3 6.0 low Not Available [address], [address], 01/05/2024 04:41:54 01/04/2001/05/2024 CBC (INCL UDES DIFF/ PLT) RDW 13.8 % 11.0-1 5.0 normal Not Available [address], [address], 01/05/2024 04:41:54 01/04/20 24 01/05/2024 CBC (INCL UDES DIFF/ PLT) platelet count 223 thous and/u L 140-40 0 normal Not Available [address], [address], 01/05/2024 04:41:54 01/04/20 24 01/05/2024 CBC (INCL UDES DIFF/ PLT) MPV 11.4 fL 7.5-12 .5 normal Not Available [address], [address], 01/05/2024 04:41:54 01/04/20 24 01/05/2024 CBC (INCL UDES DIFF/ PLT) absolute neutrophils 2751 cells /uL 1500-7 800 normal Not Available [address], [address], 01/05/2024 04:41:54 01/04/20 24 01/05/2024 CBC (INCL UDES DIFF/ PLT) absolute lymphocytes 1473 cells /uL 850-39 00 normal Not Available [address], [address], 01/05/2024 04:41:54 01/04/20 24 01/05/2024 CBC (INCL UDES DIFF/ PLT) absolute monocytes 647 cells /uL 200-95 0 normal Not Available [address], [address], 01/05/2024 04:41:54 01/04/20 24 01/05/2024 CBC (INCL UDES DIFF/ PLT) absolute eosinophils 371 cells /uL 15-500 normal Not Available [address], [address], 01/05/2024 04:41:54 01/04/20 24 01/05/2024 CBC (INCL UDES DIFF/ PLT) absolute basophils 58 cells /uL 0-200 normal Not Available [address] [place], [address], 01/05/2024 04:41:54 01/04/20 24 01/05/2024 CBC (INCL UDES DIFF/ PLT) neutrophils 51.9 % normal Not Available [address], [address], 01/05/2024 04:41:54 01/04/20 24 01/05/2024 CBC (INCL UDES DIFF/ PLT) lymphocytes 27.8 % normal Not Available [facility] [address], [address], 01/05/2024 04:41:54 01/04/2001/05/2024 CBC (INCL UDES DIFF/ PLT) monocytes 12.2 % normal Not Available [address], [address], 01/05/2024 04:41:54 01/04/20 24 01/05/2024 CBC (INCL UDES DIFF/ PLT) eosinophils 7.0 % normal Not Available [facility] [address], [address], 01/05/2024 04:41:54 01/04/20 24 01/05/2024 CBC (INCL UDES DIFF/ PLT) basophils 1.1 % normal Not Available [address], [address], 01/05/2024 04:41:54 01/04/20 24 01/05/2024 PSA, TOTAL PSA, total 0.67 NG/mL < or = 4.00 normal The total PSA value from this assay syste m is stand ardiz ed again st the WHO stand segun. The test resul t will be appro ximat shoshana 20% lower when matthias red to the equim olar- stand ardiz ed total PSA (Sagastume man Coult er). Matthias rison of seria l PSA resul ts shoul d be inter prete d with this fact in mind. This test was perfo rmed using the Sieme ns chemi lumin escen t metho d. Value s obtai eve from diffe rent assay metho ds canno t be used inter osborn eably . PSA level s, regar dless of value , shoul d not be inter prete d as absol fabian evide nce of the prese nce or absen ce of disea se. Not Available prollie [facility] [address] [place], [address], 01/05/2024 04:41:55 01/04/2001/09/2024 HEMOG LOBIN A1C hemoglobin A1C 5.9 %_of_ total _HGB <5.7 high For someo ne witho ut known diabe too, a hemog lobin A1c value betwe en 5.7% and 6.4% is consi stent with predi abete s and shoul d be confi rmed with a follo w-up test. For someo ne with known diabe too, a value <7% indic ates that their diabe too is well contr olled . A1c targe ts shoul d be indiv idual ized based on durat ion of diabe too, age, comor bid condi tions , and other consi derat ions. This assay resul t is consi stent with an incre ased risk of diabe too. Curre ntly, no conse nsus exist s regar ding use of hemog lobin A1c for diagn osis of diabe too for child derick. This test was perfo rmed on the Cristian vonnie c503 platf orm. Effec tive , a osborn e in test platf orms from the [facility] to the Cristian vonnie c503 may have shift ed HbA1c resul ts matthias red to histo rical resul ts. Based on labor atory valid ation testi ng condu cted at [facility] , the [facility] platf orm relat lisa to the [facility] platf orm had an avera ge incre ase in HbA1c value of < or = 0.3%. This diffe rence is withi n accep beck varia bilit y estab lishe d by the Natio nal [employer] hemog lobin Stand agaat ation Progr am. Note that not all indiv idual s will have had a shift in their resul ts and direc t matthias rison s betwe en histo rical and curre nt resul ts for testi ng condu cted on diffe rent platf orms is not recom dedra d. Not Available [facility] [address] [place], [address], 01/09/2024 23:55:00 03/14/20 24 03/14/2024 influ meme virus A + B + SARS- CoV-2 (COVI D19) Ag panel , rapid IA, upper respi rator y speci men Flu A negati ve Not Available In-Office Order Internal Use Only DO Not Attach Compendium DO Not Attach Compendium, Do Not Delete/merge, [id number] 03/14/2024 15:44:31 03/14/20 24 03/14/2024 influ meme virus A + B + SARS- CoV-2 (COVI D19) Ag panel , rapid IA, upper respi rator y speci men Flu B negati ve Not Available In-Office Order Internal Use Only DO Not Attach Compendium DO Not Attach Compendium, Do Not Delete/merge, [id number] 03/14/2024 15:44:31 03/14/20 24 03/14/2024 influ meme virus A + B + SARS- CoV-2 (COVI D19) Ag panel , rapid IA, upper respi rator y speci men Rapid SARS CoV 2 Ag, QL IA, respiratory specimen negati ve Not Available In-Office Order Internal Use Only DO Not Attach Compendium DO Not Attach Compendium, Do Not Delete/merge, [id number] 03/14/2024 15:44:31 05/17/20 24 05/20/2024 CULTU RE, AEROB IC BACTE ALESSANDRA culture, aerobic bacteria SEE NOTE CULTU RE, AEROB IC BACTE ALESSANDRA Micro Numbe r: [id number] Test Statu s: Final Speci men Sourc e: Finge r of left hand Speci men Quali ty: Adequ ate Resul t: No Growt h Not Available [email or web address] [address] [address], [place], [address], 05/20/2024 15:20:04 07/12/19 25 07/12/2024 rapid strep group A, throa t Strep negati ve Not Available In-Office Order Internal Use Only DO Not Attach Compendium DO Not Attach Compendium, Do Not Delete/merge, 07/12/2024 15:52:55 07/12/19 25 07/12/2024 influ meme virus A + B + SARS- CoV-2 (COVI D19) Ag panel , rapid IA, upper respi rator y speci men Flu A positi ve Not Available In-Office Order Internal Use Only DO Not Attach Compendium DO Not Attach Compendium, Do Not Delete/merge, 07/12/2024 15:52:41 07/12/19 25 07/12/2024 influ meme virus A + B + SARS- CoV-2 (COVI D19) Ag panel , rapid IA, upper respi rator y speci men Flu B negati ve Not Available In-Office Order Internal Use Only DO Not Attach Compendium DO Not Attach Compendium, Do Not Delete/merge, 07/12/2024 15:52:41 07/12/19 25 07/12/2024 influ meme virus A + B + SARS- CoV-2 (COVI D19) Ag panel , rapid IA, upper respi rator y speci men Rapid SARS CoV 2 Ag, QL IA, respiratory specimen negati ve Not Available In-Office Order Internal Use Only DO Not Attach Compendium DO Not Attach Compendium, Do Not Delete/merge, 07/12/2024 15:52:41 11/14/1911/13/2024 gluco seemilie k, blood Blood Glucose: mg/dl 102 Not Available In-Off ice Order Internal Use Only DO Not Attach Compendium DO Not Attach Compendium, Do Not Delete/merge, 11/13/2024 16:00:00 Result Notes None recorded. 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 Albert Solorio MD Attn: Accounting ,[address] [place], [place], [address] [place] [address] , [facility] 6 17:02:32 Gastroes ophageal reflux disease 581070164 Active 2015 with mild gastriti s per biopsy 2021 no Jackman' s CAN Anders Attn: Accounting ,[address] [place], [place], [address] [place] [address] , [facility] 2 10:41:36 Dizzines s 669604246 Completed 201511/03/2016 CAN Anders Attn: Accounting ,[address] [place], [address] , [facility] 7 11:14:05 Mitral valve regurgit ation 59010057 Active 2015 Albert Solorio MD Attn: Accounting ,[address] [place], [address] , [facility] 6 17:03:32 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 Kaycee bustillos Ophthamo logist Albert Solorio MD Attn: Accounting ,[address] [place], [address] , [facility] 6 16:24:47 Diarrhea 20215340 Completed 201202/24/2013 Location : None;Sev erity: Moderate ;Progres s: Stable;A dded By: Alfredo, Sophie A;Add to Current Problems : NO Not Available [facility] 7 11:28:19 Red eye Completed 201312/08/2013 Location : None;Sev erity: Moderate ;Progres s: Stable;A dded By: Sophie Fuentes;Add to Current Problems : NO Not Available [facility] 7 11:28:19 Malaise and fatigue 811165192 Completed 201211/03/2016 Location : None;Sev erity: Moderate ;Progres s: Stable;A dded By: Michael Soloriostide s J.;Add to Current Problems : NO CAN Anders Attn: Accounting ,[address] [place], [address] , [facility] 7 11:13:55 Psychose xual dysfunct ion associat ed with inhibite d libido 675456703 Active 2012 Location : None;Sev erity: Moderate ;Progres s: Stable;A dded By: Michael Soloriostide s J.;Add to Current Problems : NO Not Available [facility] 7 11:28:19 Infectio us colitis, enteriti s and gastroen teritis Completed 201202/24/2013 Location : None;Sev erity: Moderate ;Progres s: Stable;A dded By: Michael Soloriostide s J.;Add to Current Problems : NO Not Available [facility] 7 11:28:20 Disorder of hair AND/OR hair follicle Completed 201203/26/2013 Location : None;Sev erity: Moderate ;Progres s: Stable;A dded By: Michael Soloriostide s J.;Add to Current Problems : NO Not Available [facility] 7 11:28:20 Acute maxillar y sinusiti s 43453263 Completed 201309/01/2013 Location : None;Sev erity: Moderate ;Progres s: Stable;A dded By: Michael Soloriostide s J.;Add to Current Problems : NO Not Available [facility] 7 11:28:20 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 Location : None;Sev erity: Moderate ;Progres s: Stable;A dded By: Siddhartha Solorio;Add to Current Problems : NO Not Available [facility] 7 11:28:20 Acute non-supp urative serous otitis media 017273494 Completed 201301/17/2014 Location : None;Sev erity: Moderate ;Progres s: Stable;A dded By: Siddhartha Solorio;Add to Current Problems : NO Not Available [facility] 7 11:28:20 Allergic rhinitis caused by pollen 29349168 Completed 201301/25/2014 Location : None;Sev erity: Moderate ;Progres s: Stable;A dded By: Siddhartha Solorio;Add to Current Problems : NO Not Available [facility] 7 11:28:20 Cough 11310101 Completed 201303/29/2014 Location : None;Sev erity: Moderate ;Progres s: Stable;A dded By: Siddhartha Solorio;Add to Current Problems : YES Not Available [facility] 7 11:28:20 Common cold 54367062 Completed 201410/11/2014 Location : None;Sev erity: Moderate ;Progres s: Stable;A dded By: Siddhartha Solorio;Add to Current Problems : YES Not Available [facility] 7 11:28:20 Hemangio ma 113633776 Completed 201411/03/2016 Location : None;Sev erity: Moderate ;Progres s: Stable;A dded By: Siddhartha Solorio;Add to Current Problems : YES CAN Anders Attn: Accounting ,[address] [place], [address] , [facility] 7 11:14:02 Sialoade nitis 06797488 Active 2014 Location : None;Sev erity: Moderate ;Progres s: Stable;A dded By: Siddhartha Solorio;Add to Current Problems : YES Not Available [facility] 7 11:28:21 Headache 28131443 Completed 201411/03/2016 Location : None;Sev erity: Moderate ;Progres s: Stable;A dded By: Siddhartha Solorio;Add to Current Problems : YES CAN Anders Attn: Accounting ,[address] [facility], [place], [address] , [facility] 7 11:13:51 Rosacea 924617219 Active 2014 Location : None;Sev erity: Moderate ;Progres s: Stable;A dded By: Siddhartha Solorio;Add to Current Problems : YES Not Available [facility] 7 11:28:21 Coronary 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 73164535231 07 Active 2015 Location : None;Sev erity: Moderate ;Progres s: Stable;A dded By: Siddhartha Solorio;Add to Current Problems : YES Not Available [facility] 7 11:28:22 Atrial fibrilla tion 92620405 Active 2015 Location : None;Sev erity: Moderate ;Progres s: Stable;A dded By: Siddhartha Solorio;Add to Current Problems : YES Not Available [facility] 7 11:28:22 Pain in limb 45791734 Completed 201411/03/2016 Location : None;Sev erity: Moderate ;Progres s: Stable;A dded By: Cynthia Pickard;Add to Current Problems : YES CAN Anders Attn: Accounting ,[address] [facility], [place], [address] , [facility] 7 11:14:12 Localize d adiposit y 581889176 Completed 201211/03/2016 Location : None;Sev erity: Moderate ;Progres s: Stable;A dded By: Cynthia Pickard;Add to Current Problems : YES CAN Anders Attn: Accounting ,[address] [place], [address] , [place] [facility] 11:13:49 Neoplasm of bone 680312106 Completed 201203/26/2013 Location : None;Sev erity: Moderate ;Progres s: Stable;A dded By: Zayda Islas; Add to Current Problems : NO Not Available [facility] 7 11:28:22 Otogenic otalgia 66556838 Completed 201402/20/2015 Location : None;Sev erity: Moderate ;Progres s: Stable;A dded By: Zayda Islas; Add to Current Problems : YES Not Available [facility] 7 11:28:22 Hypertro phic conditio n of skin 58662806 Completed 201309/01/2013 Location : None;Sev erity: Moderate ;Progres s: Stable;A dded By: Lovely Hart i;Gisell dd to Current Problems : NO Not Available [facility] 7 11:28:22 Onychomy cosis due to dermatop hyte 603147644 Completed 201508/15/2015 Location : None;Sev erity: Moderate ;Progres s: Stable;A dded By: Lovely Hart i;A dd to Current Problems : YES Not Available [facility] 7 11:28:23 Benign essentia l hyperten courtney 7842569 Active 2012 Location : None;Sev erity: Moderate ;Progres s: Stable;A dded By: Lovely Hart i;A dd to Current Problems : YES Not Available [facility] 7 11:28:23 Screenin g procedur e Completed 201508/15/2015 Location : None;Sev erity: Moderate ;Progres s: Stable;A dded By: Ai Delacruz;Ad d to Current Problems : YES Not Available [facility] 7 11:28:23 Pain of multiple joints 95703139 Active 2012 Location : None;Sev erity: Moderate ;Progres s: Stable;A dded By: Villarre al, Manuela; Add to Current Problems : NO Not Available [facility] 7 11:28:23 Problem Notes None recorded. Procedures Surgical History Date Name Laterality Status Provider Name and Address Organization Details Recorded Time 021 destruction of lesion of heart completed Holland Mcbride [place] - [facility] 02/05/2021 10:09:31 020 destruction of lesion of heart completed Holland Mcbride [place] [facility] 11/19/2019 10:42:14 019 ablation of ventricular arrhythmogenic focus with cardiopulmonary bypass completed CAN Anders Attn: [address]ing[address] [place], [address], [facility] - [facility] 12/05/2018 11:25:42 019 implantation of internal cardiac defibrillator completed CAN Anders Attn: Accounting[address] [place], [address], [facility] - [facility] 12/05/2018 11:25:57 019 catheter ablation of arrhythmogenic focus completed CAN Anders Attn: Accounting[address] [place], [address], [facility] - [facility] 07/31/2018 11:57:47 017 Eye Surgery completed Lovely Encarnacionshravan [place] - [facility] 01/12/2017 11:17:49 Heart Surgery completed Bryanna Mccullough [facility] 05/18/2016 12:39:29 Hernia Repair completed Bryanna Mccullough [facility] 05/18/2016 12:39:39 Imaging Results None recorded. Procedure Notes None recorded. Medical Equipment None Reported. Allergies Allergen ID Allergen Name Allergen Category Reaction Reaction Severity Criticality Documentation Date Start Date Code Code System Note Provider Name and Address Organization Details Recorded Time [id number] lisinopri l medicatio n hives severe Not available 10/02/2019 18283 RxNorm CAN Anders Attn: Accountin g[address] [facility], [place], [address], [facility] - [facility] 0 14:08:50 48516 ALLERGENI C EXTRACT, RAGWEED STOCK POLLEN medicatio n Not available Not available Not available 06/16/20162012 64508 4 RxNorm Sever ity: Moder ate; Comme nt: Aller gy Type: Aller gy; Not Available [facility] 7 03:50:07 Medications Name Sig Start Date Stop Date Status Note LastModified by Organization Details LastModified Time losartan 50 mg tablet Take 1 tablet twice a day by oral route for 90 days. active Not Available Not Available No t Available cyclobenza marleen 10 mg tablet 12/11 completed Not Available Not Available Not Available furosemide 40 mg tablet 05/17 completed Not Available Not Available Not Available latanopros t 0.005 % eye drops 09/05 completed Not Available Not Available Not Available clotrimazo le 10 mg norma DISSOLVE 1 LOZENGE BY MOUTH FIVE TIMES DAILY NEEDED 12/11 completed Not Available Not Available Not Available carvedilol 6.25 mg tablet 11/18 completed Not Available Not Available Not Available doxycyclin e hyclate 100 mg capsule TAKE 1 CAPSULE BY MOUTH TWICE DAILY FOR 7 DAYS active Not Available Not Available No t Available nicotine 14 mg/24 hr daily transderma l patch 02/05 completed Not Available Not Available Not Available triamcinol one acetonide 0.5 % topical cream APPLY A THIN LAYER TO THE AFFECTED AREA(S) BY TOPICAL ROUTE 2 TIMES PER DAY up to 2 weeks at a time active Not Available Not Available No t Available Lidocaine Viscous 2 % mucosal solution 07/31 completed Not Available Not Available Not Available amiodarone 200 mg tablet 07/01 completed Not Available Not Available Not Available benzonatat e 200 mg capsule TAKE 1 CAPSULE BY MOUTH THREE TIMES DAILY FOR 10 DAYS NEEDED FOR COUGH 11/13 completed Not Available Not Available Not Available metoprolol succinate ER 50 mg tablet,ext ended release 24 hr Take 1 tablet(s) by mouth daily 05/17 completed Not Available Not Available Not Available Patanol 0.1 % eye drops Instill 1 drop(s) to affected eye(s) bid 08/01 completed RxNorm : 295864 ;Allow Substi tution : True Not Available Not Available Not Available hydrocodon e 5 mg-acetami nophen 325 mg tablet 05/17 completed Not Available Not Available Not Available lisinopril 20 mg tablet TAKE 1 TABLET BY MOUTH DAILY 10/01 completed Not Available Not Available Not Available fluorourac il 5 % topical cream APPLY A SUFFICIEN T AMOUNT TO COVER THE LESIONS IN THE AFFECTED AREA(S) BY TOPICAL ROUTE 2 TIMES PER DAY 10/01 completed Not Available Not Available Not Available Prilosec 20 mg capsule,de layed release Take 1 capsule(s ) by mouth daily 08/01 completed RxNorm : 797036 ;Allow Substi tution : True Not Available Not Available Not Available clobetasol 0.05 % topical cream APPLY A THIN LAYER TO THE AFFECTED AREA TWICE DAILY FOR UP TO 2 WEEKS 2022 active Not Available Not Available Not Avai lable dofetilide 125 mcg capsule Take 2 tabs po daily 11/26 completed Not Available Not Available Not Available tobramycin -dexametha sone 0.3 %-0.1 % eye ointment one gtt each eye daily prn 11/03 completed Allow Substi tution : True Not Available Not Available Not Available amlodipine 2.5 mg tablet 10/01 completed Not Available Not Available Not Available amlodipine 5 mg tablet once daiy at night active Not Available Not Available No t Available peg-electr olyte solution 420 gram oral solution TAKE DIRECTED BY OFFICE 06/25 completed Not Available Not Available Not Available omeprazole 40 mg capsule,de layed release TAKE 1 CAPSULE BY MOUTH DAILY active Not Available Not Available No t Available sotalol 120 mg tablet TAKE 1 AND 1/2 TABLETS BY MOUTH TWICE DAILY active Not Available Not Available No t Available spironolac tone 25 mg tablet Take 1 tab po daily. 07/31 completed Not Available Not Available Not Available carvedilol 3.125 mg tablet Take 1 tab tid 10/01 completed Not Available Not Available Not Available dexamethas one sodium phosphate 0.1 % eye drops 05/17 completed Not Available Not Available Not Available ketorolac 0.5 % eye drops 07/31 completed Not Available Not Available Not Available cefadroxil 500 mg capsule 1 capsule by mouth every 12 hrs x 7 days 05/24 completed RxNorm : [id number] ;Allow Substi tution : True Not Available Not Available Not Available Azopt 1 % eye drops,susp ension 1 drop a day 07/31 completed Not Available Not Available Not Available amoxicilli n 875 mg tablet TAKE 1 TABLET BY MOUTH TWICE DAILY WITH FOOD FOR 7 DAYS 09/24 completed Not Available Not Available Not Available potassium chloride ER 20 mEq tablet,ext ended release(pa rt/cryst) TAKE 2 TABLETS BY MOUTH TWICE DAILY active Not Available Not Available No t Available prednisolo ne acetate 1 % eye drops,susp ension 07/31 completed Not Available Not Available Not Available magnesium oxide 400 mg (241.3 mg magnesium) tablet TAKE 1 TABLET BY MOUTH DAILY active Not Available Not Available No t Available levofloxac in 0.5 % eye drops 07/31 completed Not Available Not Available Not Available benzonatat e 100 mg capsule Take 1 capsule 3 times a day by oral route as needed. 12/11 completed Not Available Not Available Not Available mexiletine 150 mg capsule TAKE ONE CAPSULE BY MOUTH THREE TIMES DAILY active Not Available Not Available No t Available cephalexin 500 mg capsule 11/13 completed Not Available Not Available Not Available erythromyc in 5 mg/gram (0.5 %) eye ointment 06/25 completed Not Available Not Available Not Available oseltamivi r 75 mg capsule TAKE 1 CAPSULE BY MOUTH TWICE A DAY FOR 5 DAYS active Not Available Not Available No t Available Alrex 0.2 % eye drops,susp ension 05/17 completed Not Available Not Available Not Available promethazi ne 25 mg tablet TAKE 1/2 TABLET BY MOUTH EVERY 6 HOURS NEEDED FOR NAUSEA 06/25 completed Not Available Not Available Not Available losartan 25 mg tablet TAKE 1 TABLET BY MOUTH ONCE DAILY 09/24 completed Not Available Not Available Not Available mometasone 50 mcg/actuat ion nasal spray [place] 4 sprays every day by intranasa l route as directed, for 2 sprays each nostril. 2023 active Not Available Not Available Not Avai lable triamteren e 37.5 mg-hydroch lorothiazi de 25 mg tablet Take 1 tablet(s) by mouth daily 12/25 completed RxNorm : 287577 ;Allow Substi tution : True Not Available Not Available Not Available aspirin 81 mg chewable tablet Chew 1 tablet(s) by mouth qam 08/01 completed RxNorm : 891038 ;Allow Substi tution : True Not Available Not Available Not Available cephalexin 500 mg tablet Take 1 tablet every 6 hours by oral route for 7 days. 07/12 completed Not Available Not Available Not Available Cortispori n 3.5 mg/mL-10,0 00 unit/mL-1 % ear solution Instill 4 drop(s) in affected ear(s) qid 04/20 completed RxNorm : 233733 ;Allow Substi tution : True Not Available Not Available Not Available hydrocorti sone 2.5 % topical cream APPLY TOPICALLY TO THE AFFECTED AREA TWICE DAILY active Not Available Not Available No t Available montelukas t 10 mg tablet Take 1 tablet every day by oral route. 03/31 completed Not Available Not Available Not Available Longs Adult Low Strength ASA 81 mg tablet,del ayed release Take 1 tablet every day by oral route. 07/31 completed Not Available Not Available Not Available hydrochlor othiazide 25 mg tablet 1 tablet PO QD 05/17 completed Not Available Not Available Not Available triamteren e 75 mg-hydroch lorothiazi de 50 mg tablet Take 1 tablet(s) by mouth daily 01/13 completed RxNorm : 905574 ;Allow Substi tution : True Not Available Not Available Not Available metoprolol succinate ER 25 mg tablet,ext ended release 24 hr Take 1 tab po daily active Not Available Not Available No t Available clobetasol 0.05 % topical ointment APPLY TOPICALLY A THIN LAYER TO THE AFFECTED AREA 2 TIMES PER DAY FOR UP TO 2 WEEKS AT A TIME active Not Available Not Available No t Available Dyazide 37.5 mg-25 mg capsule Take 1 capsule(s ) by mouth daily 01/22 completed RxNorm : 134076 ;Allow Substi tution : True Not Available Not Available Not Available albuterol sulfate HFA 90 mcg/actuat ion aerosol inhaler Inhale 2 puffs every 4 hours by inhalatio n route. 12/11 completed Not Available Not Available Not Available cefdinir 300 mg capsule Take 1 capsule every 12 hours by oral route. 05/19 completed Not Available Not Available Not Available fluticason e propionate 50 mcg/actuat ion nasal spray,susp ension SHAKE LIQUID AND USE 2 SPRAYS IN EACH NOSTRIL DAILY active Not Available Not Available No t Available dofetilide 500 mcg capsule 07/31 completed Not Available Not Available Not Available dicyclomin e 10 mg capsule 12/11 completed Not Available Not Available Not Available brimonidin e 0.15 % eye drops INSTILL 1 DROP INTO EACH EYE THREE TIMES DAILY active Not Available Not Available No t Available amoxicilli n 875 mg-potassi um clavulanat e 125 mg tablet TAKE 1 TABLET BY MOUTH TWICE DAILY 07/12 completed Not Available Not Available Not Available dorzolamid e 2 % eye drops INSTILL 1 DROPS INTO EACH EYE TWICE DAILY active Not Available Not Available No t Available nicotine 7 mg/24 hr daily transderma l patch APPLY 1 NEW PATCH EVERY DAY DIRECTED 02/13 completed Not Available Not Available Not Available magnesium 250 mg (as magnesium oxide) tablet Take 1 tablet every day by oral route. 03/31 completed Not Available Not Available Not Available buspirone 15 mg tablet TK 1 T PO TID PRN 02/05 completed Not Available Not Available Not Available tobramycin 0.3 %-dexameth asone 0.1 % eye drops,susp ension 11/03 completed Not Available Not Available Not Available Bactrim DS 800 mg-160 mg tablet 1 po bid x 7 days 06/19 completed RxNorm : 930490 ;Allow Substi tution : True Not Available Not Available Not Available ketorolac 0.4 % eye drops 10/01 completed Not Available Not Available Not Available Florastor 250 mg capsule Take 1 capsule 3 times a day by oral route. 12/11 completed Not Available Not Available Not Available Cialis 20 mg tablet 1/2 to 1 by mouth before sexual activty daily as needed 01/28 completed RxNorm : 574274 ;Allow Substi tution : True Not Available Not Available Not Available doxycyclin e hyclate 100 mg tablet,del ayed release 10/01 completed Not Available Not Available Not Available hydrochlor othiazide 01/13 completed Allow Substi tution : True Not Available Not Available Not Available sotalol 180mg BID 09/24 completed Not Available Not Available Not Available Multaq 400 mg tablet Take 1 tablet(s) by mouth bid with morning and evening meals. 01/06 completed RxNorm : 856009 ;Allow Substi tution : True Not Available Not Available Not Available Astepro 205.5 mcg (0.15 %) nasal spray Use 2 spray(s) in each nostril daily 08/12 completed RxNorm : 597954 ;Allow Substi tution : True Not Available Not Available Not Available Amalia Allergy 180 mg tablet Take 1 tablet(s) by mouth daily 08/12 completed RxNorm : 267040 ;Allow Substi tution : True Not Available Not Available Not Available Eliquis 5 mg tablet Take 1 tablet(s) by mouth bid active Not Available Not Available No t Available Jublia 10 % topical solution with applicator apply thin film to the affected nail daily 01/13 completed RxNorm : 029325 2;Allo w Substi tution : True Not Available Not Available Not Available magnesium 200 mg (as magnesium oxide) tablet Take by oral route. 03/31 completed Not Available Not Available Not Available Rhopressa 0.02 % eye drops INSTILL 1 DROP INTO EACH EYE AT NIGHT AT BEDTIME 11/13 completed Not Available Not Available Not Available magnesium 400 mg (as magnesium oxide) tablet One po daily 2022 active Not Available Not Available Not Avai lable Voltaren Arthritis Pain 1 % topical gel APPLY 2 GRAMS TO THE AFFECTED AREA(S) BY TOPICAL ROUTE 4 TIMES PER DAY 2023 active Not Available Not Available Not Avai lable Wegovy 0.25 mg/0.5 mL subcutaneo us pen injector Inject 0.5 mL every week by subcutane ous route. 12/11 completed Not Available Not Available Not Available Vitals Date Recorded Body height Body mass index (BMI) Body weight Body temperature Oxygen saturation Oxygen saturation in Arterial blood by Pulse oximetry Heart rate Systolic blood pressure Diastolic blood pressure Provider Name and Address Organization Details Last Updated DateTime 5 170.18 cm 41.2 kg/m2 660802. 79 g 97.2 [degF] 96 % 96 % 60 /min 111 mm[Hg] 76 mm[Hg] Carmen Garay MA [facility] 5 15:46:51 Date Recorded Body height Body mass index (BMI) Body weight Oxygen saturation Oxygen saturation in Arterial blood by Pulse oximetry Heart rate Body temperature Systolic blood pressure Diastolic blood pressure Provider Name and Address Organization Details Last Updated DateTime 5 170.18 cm 36.8 kg/m2 175870. 21 g 98 % 98 % 62 /min 97.8 [degF] 132 mm[Hg] 86 mm[Hg] Lynne Zhou MA [facility] 5 15:42:09 Date Recorded Body height Body mass index (BMI) Body weight Oxygen saturation Oxygen saturation in Arterial blood by Pulse oximetry Heart rate Body temperature Systolic blood pressure Diastolic blood pressure Provider Name and Address Organization Details Last Updated DateTime 4 170.18 cm 40.3 kg/m2 310375. 24 g 96 % 96 % 60 /min 97.2 [degF] 120 mm[Hg] 77 mm[Hg] Lynne Zhou MA [facility] 4 12:10:02 Date Recorded Body mass index (BMI) Body height Provider Name and Address Organization Details Last Updated DateTime 03/14/2024 40.3 kg/m2 170.18 cm CAN Anders Attn: [address] [place], [address], [facility] 03/14/2024 15:32:04 Date Recorded Body weight Body temperature Oxygen saturation Oxygen saturation in Arterial blood by Pulse oximetry Heart rate Systolic blood pressure Diastolic blood pressure Provider Name and Address Organization Details Last Updated DateTime 4 446726. 24 g 98.3 [degF] 96 % 96 % 58 /min 110 mm[Hg] 73 mm[Hg] Carmen Garay MA [facility] 4 15:04:37 Date Recorded Body height Body mass index (BMI) Body weight Body temperature Oxygen saturation Oxygen saturation in Arterial blood by Pulse oximetry Heart rate Systolic blood pressure Diastolic blood pressure Provider Name and Address Organization Details Last Updated DateTime 4 170.18 cm 41.2 kg/m2 702362. 79 g 97.2 [degF] 98 % 98 % 59 /min 125 mm[Hg] 82 mm[Hg] Jonathan Valle MA [facility] 4 15:56:07 Social History Question Answer Notes LastModified by Organizat ion Details LastModified Time Tobacco Smoking Status Former Smoker Lovely Muro ralph, [place] - [place] 07/31/2018 11:42:52 Do You Have An Advance Directive? Yes Information n ot available 05/19/2021 Are You Blind Or Do You Have Difficulty Seeing? No Information n ot available 05/19/2021 What Is Your Level Of Caffeine Consumption? None Information not available 02/05/2021 In The 14 Days Before Symptom Onset, Have You Had Close Contact With A Laboratory-confirm ed COVID-19 While That Case Was Ill? No Information n ot available 05/19/2021 In The 14 Days Before Symptom Onset, Have You Had Close Contact With A Person Who Is Under Investigation For COVID-19 While That Person Was Ill? No Information not available 05/19/2021 Have You Been To An Area Known To Be High Risk For COVID-19? No Information not available 05/19/2021 Are You Deaf Or Do You Have Serious Difficulty Hearing? No Information not available 05/19/2021 What Type Of Diet Are You Following? REGULAR Information n ot available 05/19/2021 Are There Any Guns Present In Your Home? No Information not available 05/19/2021 What Was The Date Of Your Most Recent Tobacco Screening? 11/13/2024 Information not available 11/13/2024 What Is Your Relationship Status? Information not available 05/19/2021 Do You Use Your Seat Belt Or Car Seat Routinely? Yes Information not available 05/19/2021 Do You Have Smoke And Carbon Monoxide Detectors In Your Home? Yes Information not available 05/19/2021 Are You Passively Exposed To Smoke? No Information no t available 05/19/2021 Do You Use Sunscreen Routinely? Yes Information not available 05/19/2021 Has Tobacco Cessation Counseling Been Provided? No Information not available 08/10/2021 On What Date Was Tobacco Cessation Counseling Provided? 07/12/2024 [email or web address] Information not available 07/12/2024 Sex: Male Functional Status Question Answer Note LastModified by Organizat ion Details LastModified Time Do you use any illicit or recreational drugs? No Information not available 08/10/2021 Do you or have you ever used any other forms of tobacco or nicotine? Yes Information not available 02/05/2021 What is your level of alcohol consumption? None Information not available 02/05/2021 Do you or have you ever used smokeless tobacco? Former smokeless tobacco user Information not available 02/05/2021 Are you currently employed? Yes Information not available 05/19/2021 Are you able to care for yourself? Yes Information not available 05/19/2021 What is your exercise level? None Information not available 05/19/2021 Mental Status Question Answer Note LastModified by Organization D etails LastModified Time Do you feel stressed (tense, restless, nervous, or anxious, or unable to sleep at night)? [id number] Information not available 05/19/2021 Family History Relationship Description Onset Age of this Age Resolved Age Notes LastModified by Organization Details LastModified Time Father Hypertensive disorder [email or web address] Not available 11/2015 12:40:53 Father Malignant neoplasm of prostate [email or web address] Not available 11/2015 12:41:03 Mother Hypertensive disorder [email or web address] Not available 11/2015 12:40:53 Medical History Condition Response Coronary Artery Disease N Other N High Blood Pressure Y Atrial Fibrillation Y Kidney or Bladder Problems N Thyroid Problems N GI Problems N Depression N COPD N Blood Clots N Skin Problems N Anemia N Heart Attack (AR) N Anxiety Disorder N Diabetes N Muscle, Joint, or Bone Problems N Seizures/Epilepsy N Acid Reflux (GERD) Y Cancer N Stroke N Asthma N Allergies N High Cholesterol N Hepatitis N Liver Disease N Headaches N Heart Failure N Osteoporosis N Immunizations Vaccine Type Date Status Note Provider Nam e and Address Organization Details Recorded Time COVID-19, mRNA, LNP-S, PF, 30 mcg/0.3 mL dose 1 completed CAN Anders Attn: Accounting[address] [facility], [place], [address], [place] [facility] 01/30/2024 12:19:09 COVID-19, mRNA, LNP-S, PF, 30 mcg/0.3 mL dose 1 completed CAN Anders Attn: [address] [facility], [place], [address], [place] [facility] 01/30/2024 12:19:09 COVID-19, mRNA, LNP-S, PF, 30 mcg/0.3 mL dose 1 completed Lynne Zhou MA [facility], [place] - [facility] 08/10/2021 10:35:47 Influenza, recombinant, quadrivalent, PF 2 completed CAN Anders Attn: [address]ing[address] [facility], [place], [address], [place] [facility] 01/30/2024 12:19:09 COVID-19, mRNA, LNP-S, PF, 30 mcg/0.3 mL dose 1 completed CAN Anders Attn: [address]ing[address] [facility], [place], [address], [place] [facility] 01/30/2024 12:19:09 Influenza, split virus, quadrivalent, PF 8 completed CAN Anders Attn: Accounting[address] [facility], [place], [address], [place] [facility] 01/30/2024 12:19:09 Influenza, split virus, quadrivalent, PF 0 completed CAN Anders Attn: Accounting[address] [facility], [place], [address], [place] [facility] 01/30/2024 12:19:09 Influenza, split virus, quadrivalent, preservative 7 completed Not Available [facility] 06/30/2019 02:34:47 Influenza, split virus, quadrivalent, preservative 9 completed Not Available [facility] 06/30/2019 02:46:43 Influenza, split virus, quadrivalent, preservative 1 completed Darian Pelaez MA [facility], [place] - [facility] 05/19/2021 15:21:10 Tdap 6 completed CAN Anders Attn: Accounting[address] [facility], [place], [address], [facility] - [facility] 01/30/2024 12:19:09 Tdap 6 completed Not Available [facility] 06/16/2016 05:16:31 Past Encounters Encounter ID Performer Location Encounter Start Date Encounter Closed Date Diagnosis/Indication Diagnosis SNOMED-CT Code Diagnosis ICD10 Code Diagnosis Note [id number] Albert Solorio MD [facility] [address] [place] [address] 05/17/2016 16:14:24 05/19/2016 12:11:19 Retinal embolus 585886412 H34.9 Gastroesop hageal reflux disease 746017538 K21.9 Dizziness 323201134 R42 Mitral ramona ve regurgitation 52310757 I34.0 [id number] Albert Solorio MD [facility] [address] [place] [address] 05/19/2016 16:41:15 05/21/2016 10:54:15 Retinal embolus 192660696 H34.9 Ischemic o ptic neuropathy 79137794 H47.391 [id number] Albert Solorio MD [facility] [address] [place] [address] 05/28/2016 15:10:36 05/31/2016 10:55:50 Ischemic optic neuropathy 40677573 H47.011 Retinal embolus 20706164 9 H34.9 [id number] Cherelle Sanchez MD [facility] [address] [place] [address] 06/17/2016 13:57:47 06/18/2016 12:06:02 Ischemic optic neuropathy 98818605 H47.013 gave a note for intention of permanent disability applicatio n for his job notificati on [id number] Rehana Cifuentes MD [facility] [address] [place] [address] 07/15/2016 13:55:38 07/16/2016 09:58:17 Vertigo 615362204 R42 Glaucoma 89381876 H40.9 per ophthalmol ogy [id number] Rehana Cifuentes MD [facility] [address] [place] [address] 11/03/2016 10:52:03 11/03/2016 14:03:47 Glaucoma 97029187 H40.9 cleared for surgery under local anesthesia . Faxed H&P form, see copies in chart Essential hypertension 00222820 I10 [id number] Albert Solorio MD [facility] [address] [place] [address] 01/12/2017 11:07:48 01/12/2017 16:28:52 Benign essential hypertension 8367729 I10 Gastroesop hageal reflux disease 525990974 K21.9 Mitral ramona ve regurgitation 83297766 I34.0 Screening for malignant neoplasm of prostate 324350835 Z12.5 [id number] Albert Solorio MD [facility] [address] [place] [address] 04/22/2017 12:48:51 04/22/2017 13:21:59 Administration of influenza vaccine 45148515 Z23 [id number] Albert Solorio MD [facility] [address] [place] [address] 09/05/2017 16:41:19 09/05/2017 17:19:49 Benign essential hypertension 5216650 I10 Abdominal pain 32257131 R10.9 [id number] Albert Solorio MD [facility] [address] [address] [place] [address] 12/06/2017 16:06:50 12/07/2017 09:47:12 Benign essential hypertension 6013376 I10 Ischemic o ptic neuropathy 00387468 H47.011 Memory impairment 034826 006 R41.3 Screening for malignant neoplasm of prostate 036388054 Z12.5 Allergic rhinitis 130308 04 J30.9 [id number] Albert Solorio MD [facility] [address] [place] [address] 12/07/2017 09:40:12 12/08/2017 09:14:43 Benign essential hypertension 6276732 I10 Screening for malignant neoplasm of prostate 819260461 Z12.5 Hyperlipid emia screening 141294976 Z13.011 [id number] Rehana Cifuentes MD [facility] [address] [place] [address] 07/31/2018 11:39:29 08/01/2018 08:42:22 Atrial fibrillation 88619023 I48.[address] Plunkett and Dr. Lou Allergic rhinitis 037016 04 J30.9 Gastroesop hageal reflux disease 462537591 K21.9 Benign ess ential hypertension 8506037 I10 [id number] Rehana Cifuentes MD [facility] [address] [place] [address] 12/05/2018 10:45:10 12/06/2018 11:35:59 Benign essential hypertension 2724707 I10 Gastroesop hageal reflux disease 893362364 K21.9 Allergic rhinitis 348703 04 J30.9 History of polyp of colon 675504228 Z86.010 will be checking with cardiology their comfort in colonoscop y procedure and will schedule this year if possible due to being 5 years overdue [id number] CAN Anders [facility] [address] [place] [address] 03/28/2019 10:50:28 03/29/2019 09:09:11 Actinic keratosis 010249832 L57.0 out of liquid nitrogen today, when back in town, if continues then will come in next month for that. Facial nikolas orrheic dermatitis 800297362 L21.9 I told him to use selsun blue shampoo lather, wait and rinse, along with BID otc hydrocorti sone cream BID for 7-10 days. [id number] Rehana Cifuentes MD [facility] [address] [place] [address] 05/17/2019 14:29:04 05/18/2019 09:32:35 Benign essential hypertension 5177633 I10 per cardiology Acute urticaria 58398841 9 L50.9 informed pt to discuss with his cardiology team tomorrow if d/c his lisinopril and making a switch is feasible. Actinic keratosis 007 L57.0 hold the Efudex for now and allow for healing, call if any papule or ulcer/scab recurs Dizziness 090704116 R42 will have drawn with other labs per cardiology Administra tion of influenza vaccine 56801169 Z23 [id number] Rehana Cifuentes MD [facility] [address] [place] [address] 10/02/2019 13:01:55 10/02/2019 14:54:47 Tinnitus 08085222 H93.13 will continue to watch and wait, and considerin g ENT in the future but not bad yet and wants to hold off. Positional vertigo 98866 4002 H81.10 very minimal and no recent change in symptoms, will be careful with quick position change and stay in close contact with his cardiologi st. Hyperglycemia 00802429 R 73.9 We discussed in great length eating a well balanced low glycemic, high fiber and protein diet, with small frequent meals and snacks to avoid hunger and prolong energy and prevent sugar spikes and drops. He understand s and will be more aware. Will continue to keep an eye on his A1C one to two times a year, 3 months ago normal at 5.4 [id number] Rehana Cifuentes MD [facility] [address] [place] [address] 11/19/2019 10:13:33 11/19/2019 14:42:20 Atrial fibrillation 83918433 I48.[address] Plunkett and Dr. Lou, [facility]. Benign ess ential hypertension 7430617 I10 per cardiology Hypokalemia 67469455 E87 .6 reviewed his lab from 11/15 and all electrolyt es normal, and renal function great. No changes to current potassium and magnesium suplementa tion Gastroesop hageal reflux disease 722760606 K21.9 continue omeprazole QOD as it controls his symptoms, no interactio ns with other meds noted. Screening for malignant neoplasm of prostate 196437628 Z12.5 will try to add PSA to recent lab drawn at [facility] [id number] Rehana Cifuentes MD [facility] [address] [facility] [address] [place] [address] 11/27/2019 13:11:28 11/27/2019 14:15:13 Tobacco user 547430655 Z72.0 Sore throat 551215600 J0 2.9 will call if any new or worsening symptoms or fevers or white spots on the throat. Allergic rhinitis 685110 04 J30.9 very leary to take any medication . Will call the EP doctor to confirm they don't have any issues with starting this medication . He wants to stay off of flonase. [id number] Rehana Cifuentes MD [facility] [address] [facility] [address] [place] [address] 01/11/2020 13:45:03 01/13/2020 08:36:56 Chronic vertigo 6205859065 9105 R42 will see if ENT can find a vestibular cause, if not will reconsider touching base with his neurologis t, or consider [facility] route which he and his are also considerin g Atrial fibrillation 4943 [address] Plunkett and Dr. Lou, has been in normal rhythm Hypokalemia 99938011 E87 .6 reviewed his lab from 11/15 and all electrolyt es normal, and renal function great. No changes to current potassium and magnesium supplement ation [id number] Rehana Cifuentes MD [facility] [address] [facility] [address] [place] [address] 03/31/2020 09:24:59 03/31/2020 17:15:08 Anxiety 89965023 F41.9 has been on buspar in the past and did well. Atrial fibrillation 4943 [address] Plunkett and Dr. Lou Tobacco de pendence syndrome 71186462 F17.200 He will wean down to the 7mg patch when he is ready at 2 or 4 weeks, and then wear one for two days to wean off of the 7mg if he feels it's necessary. Posttrauma tic stress disorder 54132839 F43.10 from device defibrilla tor [id number] Rehana Cifuentes MD [facility] [address] [facility] [address] [place] [address] 02/05/2021 09:37:11 02/05/2021 14:29:02 COVID-19 363843902 U07.1 He seems to be improving quickly, with no signs of respirator y distress. He was evaluated in urgent care yesterday and all vitals were good and lungs sounded good per patient report. He will continue to monitor symptoms and breathing, stay hydrated and home in quarantine with his per CDC guidelines . Vit c/d and zinc discussed. We agreed to defer the monoclonal antibody infusion since he is rapidly improving being fully vaccinated . [id number] Rehana Cifuentes MD [facility] [address] [facility] [address] [place] [address] 02/13/2021 11:47:31 02/15/2021 23:02:34 COVID-19 082572590 U07.1 pulse ox remains in the upper 90s, no SOB, just tight chest with increasing sputum. No fevers. Will start antibiotic for possible secondary bacteria, add inhaler if it helps, continue. If causes palpitatio ns discontinu e with his cardiac arrhythmia history. If no better, cxr to obtain, order sent. Wheezing 76715486 R06.2 Cough 31756685 R05 down to #6 tabs, will refill [id number] Rehana Cifuentes MD [facility] [address] [facility] [address] [place] [address] 05/19/2021 12:08:40 05/20/2021 11:12:04 Adult health examination 226312089 Z00.00 reviewed recent lab per cardiology , cmp, lipid and cbc all good. Screening for malignant neoplasm of colon 253779787 Z12.11 Screening for malignant neoplasm of prostate 785655346 Z12.5 Administra tion of influenza vaccine 21978794 Z23 Tonsillar debris 7757498 00 J35.8 salt water gargles, water pick etc [id number] Rehana Cifuentes MD [facility] [address] [facility] [address] [place] [address] 06/03/2021 12:05:37 06/03/2021 14:37:23 Stomach cramps 10036662 R10.9 will hold off on antispasmo tics due to potassium. Altered adrián wel function 58506860 R19.4 will call [facility] to see if he can get him in sooner. And will start probiotic until he sees the gastroente ritis. Since COVID, may be a josué problem. [id number] Rehana Cifuentes MD [facility] [address] [facility] [address] [place] [address] 08/10/2021 10:11:21 08/10/2021 20:54:27 Computed tomography result abnormal 363515523 R93.89 will have medical records call [facility]'s office to get copies of CT scan and biopsy reports from his upper and lower scopes and will call him back after review. Upper abdominal pain 831 25059 R10.10 was told GB looked abnormal on CT and given dicyclomin e for his abd pain prn. I will review his bx reports and CT scan and get back to him. He CAN take the dicyclomin e prn to see if he gets some relief. [id number] Rehana Cifuentes MD [facility] [address] [facility] [address] [place] [address] 09/24/2021 10:10:45 09/28/2021 09:12:34 Morbid obesity 202080167 E66.01 discussed the wegovy that was suggested or Rx'd by new cardiologi st for weight loss, I'm fine with it, but the cost is not sustainabl e, I told him we can try through 340B plan or ask what others might be covered through 340 b. Patient with work on healthier whole food diet, routine exercise in attempt to lose weight. Left upper quadrant pain 760527634 R10.12 recurrent, transient, completely normal and thorough work up. He's willing to try half of the muscle relaxer, but recognizes that it likely will not be worth it for the time that these episodes last. He will try weight loss and stretches when this happens. [id number] Rehana Cifuentes MD [facility] [address] [place] [address] 12/11/2021 11:54:31 12/14/2021 12:17:07 Gastroesophageal reflux disease 236291656 K21.9 continue omeprazole QOD as it controls his symptoms, no interactio ns with other meds noted. Eczema 67481629 L30.9 feels like prickly heat. Stay as cool as he can. And use some type emollient moisturize r daily, like Eucerin or Cetaphil, and no frequent showering with soap. [id number] CAN Anders [facility] [address] [facility] [address] [place] [address] 06/25/2022 14:04:05 06/25/2022 15:40:26 Obesity 015880697 E66.9 Multiple a ctinic keratoses 951237901 L57.0 x2 on scalp, wound care discussed. NEEDS to wear sunscreen and large floppy hats always. Wound care reviewed Multiple skin tags 87260 7009 L91.8 Pruritic disorder 529706 002 L29.9 arms, off and on, chronic Eczema 84547291 L30.9 feels like prickly heat. Stay as cool as he can. And use some type emollient moisturize r daily, like Eucerin or Cetaphil, and no frequent showering with soap. [id number] Clint Orozco MD [facility] [address] [facility] [address] [place] [address] 11/02/2022 12:06:00 11/03/2022 11:42:38 Morbid obesity 354737776 E66.01 Patient with work on healthier whole food diet, routine exercise in attempt to lose weight. Benign ess ential hypertension 6157631 I10 per cardiology , defer to their recommenda tion Plaque psoriasis 3426203 09 L40.0 with upper extremity joint pain worsening and itching deep in his joints. Will start large tub of topical corticoste roid, try not to scratch, refer to derm for biopsy and possible psoriatic arthritis diagnosis and treatment options [id number] Clint Orozco MD [facility] [address] [facility] [address] [place] [address] 12/27/2023 14:07:06 12/28/2023 10:00:45 Chronic cough 18205158 R05.3 will continue PPI daily, increase to BID if needed, will add flonase daily and if no better in 2-3 weeks will get CXR. Order sent, he is having cardiac testing in about a month at [facility] and will do at that time if needed. Allergic rhinitis 210124 04 J30.9 Benign ess ential hypertension 0376637 I10 per cardiology , defer to their recommenda tion. Great today. 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 Verruca vulgaris 7583412 3 B07.8 left upper inner arm and right forehead. Treated per request, wound care discussed. [id number] Cherelle Sanchez MD [facility] [address] [facility] [address] [place] [address] 03/14/2024 14:37:28 03/15/2024 11:04:58 Acute sinusitis 67715305 J01.90 lots of saline nasal spray all day. Call if any fevers, SOB, worsening or unimproved symptoms [id number] Cherelle Sanchez MD [facility] [address] [place] [address] 05/17/2024 15:38:35 05/22/2024 11:47:18 Laceration of finger of left hand 8483467444 6302359 S61.211A await culture and keep clean, encouraged not to dig at it, but if it's obvious there is a piece trying to come out, he will call again for workin. [id number] Cherelle Sanchez MD [facility] [address] [facility] [address] [place] [address] 07/12/2024 15:03:55 07/16/2024 13:16:32 Influenza caused by Influenza A virus 534337043 J09.X2 Get plenty of rest, push fluids, vaporizer, saline nasal spray, robitussin for cough prn, tylenol for MOORE prn, call back if persistent colored nasal drainage or sputum, fevers, sinus pain, SOB. Start Tamiflu now, call with any alarm symptoms, contagion reviewed [id number] Cherelle Sanchez MD [facility] [address] [facility] [address] [place] [address] 11/13/2024 15:24:26 11/14/2024 10:42:52 Bilateral cramp of muscle of lower limbs 7812593133 6011049 R25.2 likely from his ketotic diet, LOTS and LOTS of water recommende d, and will make sure renal function and electrolyt es are safe. Takes potassium BID already and magnesium from his cardiologi st. Await labs. Discussed healthy carbs like fruit and whole grains. Weight decreased 0990038 01 R63.4 intentiona l with ketosis based diet, discussed incorporat ing healthy carbs, normal finger stick blood sugar today. keep appt in December for medicare annual wellness Health Concerns Section Related Observation LastModified by Organization Detai ls LastModified Time None Recorded Concern Status LastModified by Organization Details LastModified Time None Recorded Advance Directives Directive Y: Payers Encounter Date Sequence Insurance Name Policy Number Policy Motta Covered Member ID Motta Member ID Guarantor Name 01/30/2024 2 [facility] [employer] [facility] [id number] Kenyetta Narvaez [id number] [facility] Chris Narvaez 01/30/2024 1 [place] Narvaez [id number] Chris Narvaez 03/14/2024 2 [facility]) [id number] Kenyetta Aletha Narvaez [id number] [facility] Chris Boldenlinger 03/14/2024 1 [place] Chris Anger [id number] Chris Boldenlinger 05/17/2024 2 [facility] (O) [id number] Kenyetta Narvaez [id number] [facility] Chris Jameson Erlinger 05/17/2024 1 [place] Chris Anger [id number] Chris Jameson Erlinger 07/12/2024 2 [facility] (O) [id number] Kenyetta Aletha Narvaez [id number] [facility] Chris Jameson Erlinger 07/12/2024 1 [place] Chris Anger [id number] Chris Jameson Erlinger 11/13/2024 1 [place] Chris Anger [id number] Chris Jameson Erlinger 11/13/2024 2 [facility] - DOS ON OR AFTER 2024 (PPO) Kenyetta Narvaez [id number] Chris Jameson Savkali Notes Date Note Type Note Provider Name and Address Organization Details Recorded Time 01/30/2024 text/html Wrist/HandReport ed bypatient.Hand Dominance:right Location:right Quality:aching; sharp; dull; deep; constant; no change; has cyst in wrist Severity:moderate Duration:date of onset: (01/07/2024) Timing:gradual Context:fall; ER follow up-fell down steps after missing the last step Alleviating Factors:OTC medication (arthritis strength tylenol); brace Aggravating Factors:movement states that everything aggravates wrist Associated Symptoms:no weakness; no numbness; no tingling; no redness; no warmth; no ecchymosis; no catching/locking; no popping/clicking; no buckling; no grinding; no instability; no radiation; no drainage; no fever; no chills; no weight loss; no change in bowel/bladder habits;swelling(when it happened but not so much now) Previous Surgery:none Prior Imaging:x ray (cyst in wrist) Previous Injections:none Previous PT:none Work Related:no Working:noNotes:Has been very painful the last several years, especially when firing a gun at the range, the recoil really bothers the base of his thumb and radial wrist. CAN Anders Attn: Accounting,[address] [facility], [place], [address], [facility] 01/30/2024 22:45:20 03/14/2024 text/html COVID-19 Symptom s October 2019Reported bypatient.COVID-19 Signs and Symptomscough same; headache same; sore throat same Quality:productive cough; Yellow drainage Severity:moderate Duration:symptoms lasting 2 days Onset/Timin03/12/24 Associated Symptoms:yellow-green, thick sputum;fatigue;runny nose;body achesNotes:facial pain, no fevers, but achey. Started feeling bad Tuesday, CAN Anders Attn: Accounting,[address] [facility], [place], [address], [facility] 03/14/2024 15:45:10 05/17/2024 text/html Rash/Skin LesionReported bypatient.Location:jensen ds (left pointer finger) Quality:painful;weepin g;red;swollen Severity:mild Duration:05/16/24 Context:no new detergents or skin products; no one else with similar rash; not scratching Associated Symptoms:no fever; no cold symptoms; no nausea; no vomiting; no diarrhea; no urinary symptoms; no chills; no fatigue; no change in weightNotes:Was putting in a wood post and splinter cut his finger, pulled a piece out but thinks there may be more in there. Not sure CAN Anders Attn: Accounting,[address] [place], [address], [facility] 05/22/2024 11:23:01 07/12/2024 text/html Upper Respirator y SymptomsReported bypatient.Location:hea d; chest; throat Quality:productive cough;sharp throat pain;colored phlegm;congested Severity:moderate Context:sick contact;chronic bronchitis Associated Symptoms:rust colored sputum;shortness of breath;difficulty breathing at night;sleep apnea;fatigue Started feeling bad yesterday, came on quickly, coughing a lot, coughing up brown Phleum, runny nose, shortness of breath when coughing, headache, sore throat. Running covid, and strep test. CAN Anders Attn: Accounting,[address] [facility], [place], [address], [facility] 07/16/2024 10:39:52 11/13/2024 text/html Lower LegReporte d bypatient.Location:[facility] Quality:aching; sharp; deep; constant; not changing; cramp franklyn horse Severity:severe Duration:2-3 weeks Timing:gradual; worse in the morning Context:Pt states that he has severe leg cramps that wakes him from his sleep in the morning. Pt states that he is not sure if his weight loss is contributed to the cramps or not. Alleviating Factors:nothing helps; standing Aggravating Factors:cannot identify Associated Symptoms:no weakness; no numbness; no tingling; no swelling; no redness; no warmth; no ecchymosis; no catching/locking; no popping/clicking; no buckling; no grinding; no instability; no drainage; no fever; no chills; no weight loss; no change in bowel/bladder habits Previous Surgery:none Prior Imaging:none Previous Injections:none Previous PT:none Work Related:no Working:noNotes:Starte d keto version diet late winter early spring, losing 1-2 pounds a week. Feeling great, but starting to get franklyn horses in his legs at night fairly regularly. He is trying to drink LOTS of water and avoiding caffeinated beverages. CAN Anders Attn: Accounting,[address] [facility], [place], [address], [facility] 11/13/2024 21:18:52
--- OUTSIDE RECORDS SUMMARY | 2024-11-15 13:44 | XMS_ITS | Encounter Summary ---
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 Name Role Phone Rosalba Solorio MD Primary Care Provider + Rosalba Solorio MD Primary Care Provider + Leonard Connors MD Unavailable [phone] Steven Plunkett MD Unavailable [phone] Damaris Yang Primary Care Provider + [phone] Rosalba Solorio MD Primary Care Provider + Rosalba Solorio MD Primary Care Provider + Rosalba Solorio MD Primary Care Provider + Damaris Yang Primary Care Provider + [phone] Rosalba Solorio MD Primary Care Provider + Damaris Yang Primary Care Provider + [phone] Encounter Details Date Type Department Care Team (Latest Contact Info) Description 01/14/2016 Orders Only [facility] CLINCONV ProviderSantiago MD [address] [place] [address] Social History Tobacco Use Types Packs/Day Years Used Date Smoking Tobacco: Never Assessed Sex and Gender Information Value Date Recorded Sex Assigned at Not on file Legal Sex Male 6:13 AM MD PSYCHIATRY Gender Identity Male 03/20/2021 9:13 AM CDT Sexual Orientation Straight 03/20/2021 9: 13 AM CDT documented as of this encounter Plan of Treatment Not on file documented as of this encounter Procedures Procedure Name Priority Date/Time Associated Diagnosis Comments SCAN - LABS 01/14/2016 12:00 AM CDT documented in this encounter Results * SCAN - LABS (01/14/2016 12:00 AM CDT) Narrative 01/14/2016 12:00 AM CDT Ordered by an unspecified provider. us Historical Provider Final Res ult documented in this encounter Visit Diagnoses Not on filedocumented in this encounter Additional Health Concerns Infection Onset Date Last Indicated Resolved Time MRSA Comment:following hernia surgery in past 04/22/2020 04/21/2020 01/28/2021 5:00 AM C DT documented as of this encounter Care Teams Mold Maker Plaster Relationship Specialty Start Date End Date Rosalba Solorio MD [address] [facility] [place] [address] PCP - General 08/09/16 11/22/18 Rosalba Solorio MD [address] [place] [address] PCP - General 06/09/16 08/08/16 Damaris Yang PA [address] [place] [address] PCP - General Family Practice 11/23/18 11/23/18 Rosalba Solorio MD [address] [facility] [place] [address] PCP - General 11/24/18 03/17/20 Rosalba Solorio MD [address] [place] [address] PCP - General 03/19/20 06/15/20 Rosalba Solorio MD [address] [place] [address] PCP - General 03/18/20 03/18/20 Damaris Yang PA [address] [place] [address] PCP - General Family Practice 06/16/20 07/15/20 Rosalba Solorio MD [address] [place] [address] PCP - General 07/16/20 09/25/20 Damaris Ynag PA [address] [place] [address] PCP - General Family Practice 09/26/20 Leonard Connors MD [address] [place] [address] Referring Physician Cardiology 03/09/18 Steven Plunkett MD [address] [place], [place] [address] Consulting Physician Cardiology 03/09/18 documented as of this encounter
== END 2024-11-15 14:01 | disposition home or self-care (01) ==
PROVIDERS: Emergency Provider Nurse Practitioner Family; PCP Physician Assistant
DX: S61.211A Laceration without foreign body of left index finger without damage to nail, initial encounter (principal); W26.8XXA Contact with other sharp object(s), not elsewhere classified, initial encounter; Z23 Encounter for immunization; I10 Essential (primary) hypertension
CPT/HCPCS: 12001; 90471; 90715; 99212; G0463; J2003